=== PATIENT | male | born 1960 | race Caucasian/White ===

== ENCOUNTER 2019-12-06 05:20 | Inpatient (IN) | payer OTHER ==
[2019-12-06] VITALS (9 sets, daily range): BP systolic 124–183; BP diastolic 80–135
[~2019-12-06] VITALS: Ht 177.8 cm; Wt 64.5 kg
--- NOTE | ~2019-12-06 | EMS ---
[address] [address] EMS Patient Care Report Name: NICK CORREA Room #: PRE M.R.#: [id number] Admission: Attend Phys: Discharge: Date of : 60 Report #: [id number] THIS REPORT FOR: //name// Report Transmitted: 12/06/2019 04:49 EMS Care Summary [place], [place]/[facility] Incident [id number] @ 12/06/2019 04:53 Incident Location [address] [place] [address] Patient NICK CORREA Male, 59 Years 1960 Patient Address HOMELESS Patient History Congestive Heart Failure (CHF),Stroke/CVA,Atrial Fibrillation, Patient Allergies No known allergies, Patient Medications None Reported, Chief Complaint SOB/ CHF Disposition Transported No Lights/[place] Dispatch Reason Breathing Problem Transported To [facility] Narrative UPON ARRIVAL PT STANDING AT EDGE OF DRIVEWAY CONSCIOUS AND ALERT. PT ASSISTED INTO AMBULANCE. PT HAS BEEN HAVING TROUBLE BREATHING ALL NIGHT AND HAS BEEN UNABLE TO SLEEP. PT WAS WAITING FOR BREATHING TO IMPROVE BUT IT HASN'T. PT HAS HX CHF. LUNG SOUNDS DIMINISHED BUT CLEAR. PT ALSO HYPERTENSIVE AND A-FIB ON MONITOR. SPO2 ABLE TO MAINTAIN IN 90S ON NC. PT WEARS A MASK BUT PULLS IT DOWN [address] [address] EMS Patient Care Report Name: NICK CORREA Room #: PRE Usman#: [id number] Admission: Attend Phys: Discharge: Date of : 60 Report #: [id number] FREQUENTLY. PT GIVEN NITRO DUE TO CHF. PT TRANSPORTED [facility]. Initial Vitals @05:12P: 161,R: 30,BP: 158/81,SpO2: 95, @05:10P: 150,CO: 0,SpO2: 98, @05:05P: 142,R: 30,BP: 207/168,Pain: 0/10,GCS: 15,Glucose: 83,SpO2: 83,Revised Trauma: 11,CA Suspected: false @05:15P: 150,SpO2: 100, @05:00P: 145,GCS: 15,SpO2: 85, Assessments @05:01MENTAL:Person Oriented,Time Oriented,Place Oriented,Event Oriented,SKIN:HEENT:Head/Face: No Abnormalities,LUNG SOUNDS:General: No Abnormalities,ABDOMEN:General: No Abnormalities,PELVIS//GI:EXTREMITIES:Left Arm: No Abnormalities,Right Arm: No Abnormalities,Left Leg: No Abnormalities,Right Leg: No Abnormalities,PULSE:Radial: 2+ Normal,NEURO:No Abnormalities, Impression Respiratory disorder Procedures @05:1612-Lead ECGResponse: UnchangedSucceeded@05:01Oxygen FlowRate: 6 Device: Nasal Cannula (NC) Response: ImprovedSucceeded@05:03Saline Lock 10cc (18 ga) Site: Antecubital-LeftResponse: UnchangedSucceeded@05:033-Lead ECGResponse: UnchangedSucceeded@05:06Nitrostat - 0.4 Milligrams (mg) - SublingualResponse: Improved Timeline 04:51,Call Received 04:51,Dispatch Notified 04:53,Dispatched 04:55,En Route 04:59,On Scene 05:00,At Patient 05:00,BP: / M,PULSE: 145,RR: R,SPO2: 85 Ox,ETCO2: ,BG: ,PAIN: ,GCS: 15, 05:01,Oxygen FlowRate: 6 Device: Nasal Cannula (NC) Response: ImprovedSucceeded, 05:03,3-Lead ECG,Response: UnchangedSucceeded, 05:03,Saline Lock 10cc 18 ga Site: Antecubital-Left,Response: UnchangedSucceeded, 05:05,BP: 207/168 M,PULSE: 142,RR: 30 R,SPO2: 83 Ox,ETCO2: ,B,PAIN: 0,GCS: 15, 05:06,Nitrostat - 0.4 Milligrams (mg) - Sublingual,Response: Improved 05:08,Depart Scene 05:10,BP: / M,PULSE: 150,RR: R,SPO2: 98 Ox,ETCO2: ,BG: ,PAIN: ,GCS: , 05:12,BP: 158/81 M,PULSE: 161,RR: 30 R,SPO2: 95 Ox,ETCO2: ,BG: ,PAIN: ,GCS: , [facility] [address] [place] [address] EMS Patient Care Report Name: NICK CORREA Room #: [facility] M.R.#: [id number] Admission: Attend Phys: Discharge: Date of : 60 Report #: [id number] 05:15,BP: / M,PULSE: 150,RR: R,SPO2: 100 Ox,ETCO2: ,BG: ,PAIN: ,GCS: , 05:16,12-Lead ECG,Response: UnchangedSucceeded, 05:31,At Destination 05:37,Call Closed Disclaimer v1.1 Copyright 2020 [employer] This EMS Care Summary contains data elements from the applicable legal record (which may be displayed differently). It is designed to provide pertinent information for the following purposes: continuity of care, clinical quality, and state data reporting. The complete legal record is available to ED staff and administrators of the receiving hospital in [facility]'s Patient Tracker. All data is provided "as is."
[2019-12-06 05:40] LABS: ABSOLUTE NEUTROPHILS 6.9 thou/uL (1.4-8.2); BASOPHILS 1.1 % (0.0-2.0); EOSINOPHILS 4.5 % (0.0-3.0); HEMOGLOBIN 14.8 gm/dL (14.0-18.0); LYMPHOCYTES 21.6 % (24.0-44.0); MCH 31.1 pg (26.0-34.0); MCHC 34.4 g/dL (28.0-37.0); MCV 90.4 fL (80.0-100.0); MONOCYTES 7.8 % (1.0-8.0); PLATELET COUNT 219 thou/uL (150-400); RBC 4.75 mil/uL (4.50-6.00); RDW 13.8 % (10.5-14.5); WBC 10.6 thou/uL (4.0-11.0)
[2019-12-06 05:46] LABS: CALCIUM 7.9 mg/dL (8.5-10.1); CREATININE 1.5 mg/dL (0.7-1.3); POTASSIUM 3.8 mmol/L (3.5-5.1)
[2019-12-06 05:55] LABS: TOTAL BILIRUBIN 0.8 mg/dL (0.2-1.0); TOTAL PROTEIN 6.2 g/dL (6.4-8.2); TROPONIN-I 0.13 ng/mL (<0.06)
--- NOTE | 2019-12-06 07:26 | EKG ---
[facility] [place] [address] ELECTROCARDIOGRAM REPORT Name: NICK CORREA Room #: 170-6 ADM IN M.R.#: [id number] Admission: 12/06/19 Attend Phys: Lizandro Fulton MD Discharge: Date of : 60 Report #: [id number] THIS REPORT FOR: cc: DUKE Hernandez family physician/PCP DUKE Hernandez family physician/PCP Matthew Castañeda MD [facility] THIS REPORT FOR: //name// [facility] ED Test Date: 2019-12-06 Test Time: 05:31:33 Pat Name: NICK CORREA Department: Room: 170 Gender: M Student Activities Director: EMILY : 1960 Requested By: Lakhwinder Duque Order Number: [id number] MD: Matthew Castañeda Measurements Intervals [place] Rate: 152 P: LA: QRS: 61 QRSD: 90 T: 80 QT: 292 QTc: 465 Interpretive Statements Atrial fibrillation Anterior infarct, old No previous ECG available for comparison Electronically Signed On 12-06-2019 7:26:48 CDT by Matthew Castañeda [email or web address] <ELECTRONICALLY SIGNED> By: Matthew Castañeda MD, FACC 12/06/19725 0 0 Matthew Castañeda MD, [facility] /EPI
[2019-12-06 08:25] LABS: URINE BILIRUBIN NEGATIVE (Negative); URINE BLOOD TRACE (Negative); URINE CLARITY CLEAR; URINE COLOR YELLOW; URINE GLUCOSE-RANDOM* NEGATIVE (Negative); URINE KETONES NEGATIVE (Negative); URINE LEUKOCYTES-REFLEX NEGATIVE (Negative); URINE NITRITE-REFLEX NEGATIVE (Negative); URINE PROTEIN (DIPSTICK) 2+ (Negative); URINE SPECIFIC GRAVITY 1.025 (1.005-1.035); URINE UROBILINOGEN 0.2 E.U./dl (0.2-1.0)
[2019-12-06 08:40] LABS: FOLIC ACID 11.7 ng/mL (8.6-58.9); TSH 3.041 uIU/mL (0.358-3.740)
[2019-12-06 09:50] LABS: BACTERIA-REFLEX None Seen /HPF (None Seen); CASTS None Seen /LPF (None Seen); SQUAMOUS 0-3 Few /LPF (0-3); URINE RBC None Seen /HPF (0-2); URINE WBC-REFLEX 0-5 Rare /HPF (0-5)
[2019-12-06 09:51] LABS: CRYSTALS None Seen /LPF (None Seen)
--- NOTE | 2019-12-06 12:04 | NUR ---
ASSUMED CARE APPROX 0830. PT ADMITTED FROM ER TO 3W. PT ON 2LNC AND TACHYPNEIC. REPORTS SHORNTESS OF BREATH. ON CARDIZEM GTT @15MG/HR WHEN ARRIVED TO UNIT. TITRATED DOSE DOWN TO 5MG/HR PT'S HR WAS IN THE 70S. PT HR STABLE AT THIS TIME. IV FLUIDS D/C'D PER DR. COREA. PT EATING AND DRINKING OK. AFIB ON TELE MONITOR. PT C/O SOB W/ AMBULATION THIS AM. O2 NOW @ 3LNC. PT SLOWLY PROGRESSING TOWARDS PLAN OF CARE GOALS. WILL CONTINUE TO MONITOR.
--- NOTE | 2019-12-06 12:33 | NUR ---
COVID RESULT NEGATIVE. REPEAT COVID SWAB PER DR. MCCOY AND PAZ BALL.
--- NOTE | 2019-12-06 15:51 | NUR ---
INITIAL ASSESSMENT: Received consult. ANGÉLICA reviewed chart and spoke with nursing. Pt was admitted due to CHF. Pt placed in Enhanced Isolation to r/o COVID-19. Test is pending. Cardiology consulted. Pt is on cardizem gtt. ANGÉLICA spoke with pt via phone. Introduced role of SW. Pt appears to be alert/orientated. Pt reports he is homeless and has been living aroung this area. Pt is independent with ADLs. Pt does not have health insurance or see a doctor regularly. Pt interested in housing options. SW offered to provide pt with resources. Pt states he will not go to a homeless retirement. SW place housing info/[facility] and prescription discount card on pt's chart. Pt states he will be able to call for a ride when he is discharged. Should pt need a cab, nursing to contact the enginehouse brakeman for cab voucher. If pt needs assistance with obtaining medications over the weekend, scripts can be taken to [facility] pharmacy. Form on pt's chart if needed. ANGÉLICA is following to assist as needed with discharge planning.
[2019-12-07 03:52] VITALS: BP 145/120
[2019-12-07 05:43] LABS: BASOPHILS 0.4 % (0.0-2.0); EOSINOPHILS 0.1 % (0.0-3.0); HEMOGLOBIN 14.6 gm/dL (14.0-18.0); LYMPHOCYTES 5.3 % (24.0-44.0); MCHC 33.9 g/dL (28.0-37.0); MCV 88.4 fL (80.0-100.0); MONOCYTES 6.2 % (1.0-8.0); PLATELET COUNT 217 thou/uL (150-400); RBC 4.86 mil/uL (4.50-6.00); RDW 14.1 % (10.5-14.5); WBC 14.8 thou/uL (4.0-11.0)
[2019-12-07 05:45] LABS: CALCIUM 9.2 mg/dL (8.5-10.1); CREATININE 1.9 mg/dL (0.7-1.3); MAGNESIUM 2.1 mg/dL (1.8-2.4)
[2019-12-07 08:24] VITALS: BP 143/99
[2019-12-07 11:37] VITALS: BP 105/77
[2019-12-07 15:21] VITALS: BP 123/105
--- NOTE | 2019-12-07 16:23 | NUR ---
PATIENT NOTED TO BE QUITE ANXIOUS THIS AFTERNOON. HE STATES HE CANNOT BREATH AND "WILL LIKE TO STAY IN A TRIPOT POSITION UNTIL I COULD CATCH MY BREATH". PT HAS KNOWN HISTORY OF DRUG USE AND NURSE SUSPECTED HE MAY BE HAVING A WITHDRAWAL SYMPTOMS. NOTIFIED. SEE NEW ORDERS.
[2019-12-07 20:32] VITALS: BP 143/96
[2019-12-08 00:20] VITALS: BP 138/106
--- NOTE | 2019-12-08 07:46 | NUR ---
PROGRESS PT A/O X4 UP AD BRADLEY, DENIES PAIN. TOLERATING PO FOOD AND FLUIDS. TELE INTACT STILL READING AFIB WITH RVR WITH RATES UP TO 130'S PT DENIES CHEST PAIN OR SOA. IV ANTIBIOTICS CONTINUE
[2019-12-08 08:05] VITALS: BP 145/108
[2019-12-08 10:37] LABS: CALCIUM 8.8 mg/dL (8.5-10.1); CREATININE 1.4 mg/dL (0.7-1.3); POTASSIUM 3.9 mmol/L (3.5-5.1)
[2019-12-08 12:00] VITALS: BP 119/99
--- NOTE | 2019-12-08 17:23 | NUR ---
ASSESSMENT CHARTED. PT ALERT AND ORIENTED. DENIED HAVING PAIN OR DISCOMFORT. AFIB ON TELE. SOA NOTED WITH ACTIVITY. RT TREATMENT PROVIDED ORDERED. NEW ORDERS NOTED. NO CONCERNS AT THIS TIME.
[2019-12-08 17:30] VITALS: BP 130/109
[2019-12-08 20:21] VITALS: BP 150/109
[2019-12-08 23:34] VITALS: BP 150/109
[2019-12-09 00:20] VITALS: BP 149/108
--- NOTE | 2019-12-09 01:28 | NUR ---
assumed pt care at 1900, pt is awake, alert and orientedx4, afib on the monitor, HR sustained in the 140-150s, cardilogy called and new orders received, assessments as charted, pt is steady, denies pain or sob, pt hr noted to be sustained in 130s, cardiology called, no orders received, pt is resting in bed, denies any discomfort
[2019-12-09 04:46] VITALS: BP 140/111
[2019-12-09 05:12] LABS: HEMATOCRIT 42.1 % (42.0-52.0); MCH 29.8 pg (26.0-34.0); MCHC 33.3 g/dL (28.0-37.0); MCV 89.6 fL (80.0-100.0); RBC 4.7 mil/uL (4.50-6.00); RDW 14.1 % (10.5-14.5); WBC 14.7 thou/uL (4.0-11.0)
[2019-12-09 05:34] LABS: CALCIUM 8.7 mg/dL (8.5-10.1); CREATININE 1.6 mg/dL (0.7-1.3); POTASSIUM 3.9 mmol/L (3.5-5.1)
[2019-12-09 08:05] VITALS: BP 140/111
--- NOTE | 2019-12-09 09:30 | 2DMMODE ---
[facility] [place] [address] 2 D/M-MODE ECHOCARDIOGRAM Name: NICK CORREA Room #: 213-P ADM IN M.R.#: [id number] Admission: 12/06/19 Attend Phys: Jailyn Magana MD Discharge: Date of : 60 Report #: [id number] THIS REPORT FOR: cc: FAM - No family physician/PCP FAM - No family physician/PCP Julian Martinez MD ~ APPROVED REPORT Study performed: 12/09/2019 08:27:14 EXAM: Comprehensive 2D, Doppler, and color-flow Echocardiogram Patient Location: Echo lab Room #: 213 Status: routine BSA: 1.80 HR: 140 bpm BP: 140/111 mmHg Rhythm: Atrial Fibrillation Other Information Study Quality: Good Technically limited study due to lung interference. Indications SOB, elevated troponin, HTN urgency. Hx: Afib, CHF, HTN, COPD. 2D Dimensions RVDd: 36.16 mm IVSd: 9.69 (7-11mm) LVOT Diam: 14.87 (18-24mm) LVDd: 49.28 mm PWd: 11.12 (7-11mm) Ascending Ao: 35.77 (22-36mm) LVDs: 39.65 (25-40mm) Aortic Root: 32.32 mm Volumes Left Atrial Volume (Systole) Single Plane 4CH: 79.47 mL Single Plane 2CH: 51.77 mL LA ESV Index: 37.00 mL/m2 Aortic Valve AoV Peak Lewis.: 1.05 m/s AO Peak Gr.: 4.38 mmHg LVOT Max P.71 mmHg [facility] [address] [address] 2 D/M-MODE ECHOCARDIOGRAM Name: TASHAALEJANICK Sanjay Room #: 213-P [facility]#: [id number] Admission: 12/06/19 Attend Phys: Jailyn Magana MD Discharge: Date of : 60 Report #: [id number] LVOT Max V: 0.82 m/s MARTIN Vmax: 1.36 cm2 Mitral Valve MV Decel. Time: 92.34 ms MV E Max Lewis.: 1.58 m/s Tricuspid Valve TR Peak Lewis.: 3.03 m/s RAP Estimate: 15.00 mmHg TR Peak Gr.: 37.00 mmHg PA Pressure: 52.00 mmHg Left Ventricle The left ventricle is normal size. There is normal left ventricular wall thickness. Left ventricular systolic function is severely decreased. LVEF is 30%. This study is not technically sufficient to allow evaluation of the LV diastolic function due to atrial fibrillation. Right Ventricle The right ventricle is normal size. Right ventricle is hypokinetic. Atria Left atrium is moderately dilated. The right atrium size is normal. Aortic Valve The aortic valve is normal in structure. No aortic regurgitation is present. There is no aortic valvular stenosis. Mitral Valve Mitral valve leaflets are mildly thickened. Moderate mitral regurgitation. Tricuspid Valve The tricuspid valve is normal in structure. Mild tricuspid regurgitation. Estimated PAP is 50mmHg. Pulmonic Valve Pulmonic valve is not well visualized. Great Vessels The aortic root is normal in size. The ascending aorta is normal in size. IVC is dilated and collapses <50% with inspiration. [facility] [address] [place] [address] 2 D/M-MODE ECHOCARDIOGRAM Name: NICK CORREA Room #: 213-P [facility] IN [facility].#: [id number] Admission: 12/06/19 Attend Phys: Jailyn Magana MD Discharge: Date of : 60 Report #: [id number] Pericardium There is no pericardial effusion. <Conclusion> The left ventricle is normal size. LVEF is 30%. Left atrium is moderately dilated. The aortic valve is normal in structure. Mitral valve leaflets are mildly thickened. Moderate mitral regurgitation. The tricuspid valve is normal in structure. Mild tricuspid regurgitation. Estimated PAP is 50mmHg. Pulmonic valve is not well visualized. There is no pericardial effusion. <ELECTRONICALLY SIGNED> By: Julian Martinez MD 12/09/19928 8 Julian Martinez MD /INF
[2019-12-09 12:05] VITALS: BP 140/111
[2019-12-09 16:05] VITALS: BP 140/111
--- NOTE | 2019-12-09 17:00 | NUR ---
PT CARE ASSUMED AT 0700. ASSESSMENTS CHARTED. MEDICATION CHARTED. PT TO ECHO; EF 30%. PT TO NM LUNG PERFUSION SCAN; LOW PROBABILITY FOR PULM EMBOLISM. PT IS STEADY ON HIS FEET; UP AD BRADLEY. AFIB. LFA IV. PT IS CONTINENT OF B & B.
[2019-12-09 20:30] VITALS: BP 153/104
--- NOTE | 2019-12-10 03:07 | NUR ---
assumed pt care at 1900, pt is awake, alert and orientedx4, afib on the monitor, rates look much better, c/o pain on the genital area due to bilateral inguinal hernia, tyl offered, pt refused, miralax given as per pt request, other meds given as per may, no acute distress noted, will continue to monitor
[2019-12-10 04:45] VITALS: BP 150/94
[2019-12-10 05:23] LABS: CALCIUM 8.5 mg/dL (8.5-10.1); CREATININE 1.3 mg/dL (0.7-1.3); POTASSIUM 3.8 mmol/L (3.5-5.1)
[2019-12-10 07:30] VITALS: BP 154/75
[2019-12-10 08:00] VITALS: BP 154/75
[2019-12-10 09:00] LABS: CHOLESTEROL 210 mg/dL (<200); HDL CHOLESTEROL 55 mg/dL (>40); LDL CHOLESTEROL 109 mg/dL (<100); TC:HDL 3.8 Ratio (Not establshd); TRIGLYCERIDE 232 mg/dL (<150); VLDL 46 mg/dL (<40)
[2019-12-10 09:45] VITALS: BP 124/69
[2019-12-10] MEDS ORDERED: LISINOPRIL5 MG PO (11:08)
[2019-12-10] MEDS ORDERED: IPRAT-ALBUT 0.5-3 ML INH (11:08)
[2019-12-10] MEDS ORDERED: METOPROLOL SUCC50 MG PO (11:08)
[2019-12-10] MEDS ORDERED: ASPIRIN EC325 M1 PO (11:08)
[2019-12-10] MEDS ORDERED: DIGOXIN250 MCG PO (11:08)
[2019-12-10] MEDS ORDERED: CARDIZEM CD120 MG PO (11:08)
[2019-12-10] MEDS ORDERED: PROTONIX 20 MG20 M1 PO (11:08)
[2019-12-10] MEDS ORDERED: CEFDINIR300 MG PO (11:08)
[2019-12-10 12:00] VITALS: BP 124/69
[2019-12-10 15:11] VITALS: BP 124/69
--- NOTE | 2019-12-10 15:15 | NUR ---
PT CARE ASSUMED AT 0700. ASSESSMENTS CHARTED. MEDICATION CHARTED. PT TO BE DISCHARGED; CAB VOUCHER. PRESCRIPTIONS FILLED BY CM. TELEMETRY D/C'D. LFA IV - D/C'D. PT WILL NEED TO COME TO PHARMACY TOMORROW TO HOLE FILLER COMBIVENT.
--- NOTE | 2019-12-10 16:07 | NUR ---
Patient is homeless. Completed cab vouch for address at his request. Vouch for patients medications in amount of $516.00. Ethnology Teacher of casemgt agreeable.
== END 2019-12-10 14:49 | disposition home or self-care (01) | DRG 280 ==
LOC: ER 05:20 → EROBS 07:01 → 3W 08:39 → 2N 12-08 00:13
PROVIDERS: Emergency Medicine; Hospitalist; Nurse Practitioner; ADMIT Internal Medicine; ATTEND Internal Medicine
DX: I21.4 Non-ST elevation (NSTEMI) myocardial infarction (principal); J81.0 Acute pulmonary edema; J18.9 Pneumonia, unspecified organism; J96.01 Acute respiratory failure with hypoxia; I50.31 Acute diastolic (congestive) heart failure; N17.9 Acute kidney failure, unspecified; E44.0 Moderate protein-calorie malnutrition; J44.0 Chronic obstructive pulmonary disease with (acute) lower respiratory infection; I42.9 Cardiomyopathy, unspecified; I69.354 Hemiplegia and hemiparesis following cerebral infarction affecting left non-dominant side; Z20.828 Contact with and (suspected) exposure to other viral communicable diseases; I48.91 Unspecified atrial fibrillation; K40.90 Unilateral inguinal hernia, without obstruction or gangrene, not specified as recurrent; F19.10 Other psychoactive substance abuse, uncomplicated; I11.0 Hypertensive heart disease with heart failure; I16.0 Hypertensive urgency; Z68.20 Body mass index [BMI] 20.0-20.9, adult; Z71.6 Tobacco abuse counseling; Z59.0 Homelessness
CPT/HCPCS: 10081; 10879

== ENCOUNTER 2020-04-03 05:47 | Inpatient (IN) | payer MEDICAID ==
[~2020-04-03] VITALS: Ht 177.8 cm; Wt 63.5 kg
[~2020-04-03 05:47] MED LIST: ASPIRIN EC325 M1 PO; CARDIZEM CD120 MG PO; CEFDINIR300 MG PO; DIGOXIN250 MCG PO; IPRAT-ALBUT 0.5-3 ML INH; LISINOPRIL5 MG PO; METOPROLOL SUCC50 MG PO; PROTONIX 20 MG20 M1 PO
[2020-04-03 06:00] VITALS: BP 179/118
[2020-04-03 07:20] LABS: ABSOLUTE NEUTROPHILS 10.1 thou/uL (1.4-8.2); BASOPHILS 0.4 % (0.0-2.0); HEMATOCRIT 47.6 % (42.0-52.0); HEMOGLOBIN 15.8 gm/dL (14.0-18.0); LYMPHOCYTES 6.8 % (24.0-44.0); MCH 29.3 pg (26.0-34.0); MCHC 33.1 g/dL (28.0-37.0); MCV 88.5 fL (80.0-100.0); MONOCYTES 5.5 % (1.0-8.0); PLATELET COUNT 294 thou/uL (150-400); POLYS 86.3 % (36.0-66.0); RBC 5.38 mil/uL (4.50-6.00); RDW 13.1 % (10.5-14.5); WBC 11.7 thou/uL (4.0-11.0)
[2020-04-03 07:24] LABS: CALCIUM 9.9 mg/dL (8.5-10.1); CREATININE 1.7 mg/dL (0.7-1.3); POTASSIUM 4.1 mmol/L (3.5-5.1)
[2020-04-03 07:40] LABS: DIRECT BILIRUBIN 0.2 mg/dL (<0.1-0.2); TOTAL BILIRUBIN 1.1 mg/dL (0.2-1.0); TOTAL PROTEIN 7.3 g/dL (6.4-8.2)
--- NOTE | 2020-04-03 08:32 | NUR ---
PT states has not had meds for afib or htn since rx ran out since last visit here.
--- NOTE | 2020-04-03 08:41 | EKG ---
[place] [address] [facility] [place] [address] ELECTROCARDIOGRAM REPORT Name: NICK CORREA [facility] [id number] Admission: 04/03/20 Attend Phys: Discharge: Date of : 60 Report #: [id number] [facility] ED Test Date: 2020-04-03 Test Time: 06:45:58 Pat Name: NICK CORREA Department: Room: Gender: M Scientific Research Manager: JOSE RAFAEL : 1960 Requested By: Hubert Thompson Order Number: [id number] MD: Geovanni Peace Measurements Intervals [place] Rate: 132 P: CA: QRS: -29 QRSD: 97 T: 85 QT: 326 QTc: 483 Interpretive Statements Atrial fibrillation Paired ventricular premature complexes LVH with secondary repolarization abnormality Probable anterior infarct, old Baseline wander in lead(s) V3 Compared to ECG 12/06/2019 05:31:33 Electronically Signed On 04-03-2020 8:41:37 FIELD CARE MANAGER by Geovanni Peace [email or web address] <ELECTRONICALLY SIGNED> By: Geovanni Peace MD 04/03/20 0841 4 Geovanni Peace MD /ÁNGEL
[2020-04-03 09:40] VITALS: BP 141/110
--- NOTE | 2020-04-03 10:51 | NUR ---
59-year-old male presents with groin swelling. Patient has a longstanding history of inguinal hernia but states that it is worse this week. He noted symptoms began worsening earlier in the week and have progressed. He has constant pain large swollen inguinal hernia. Patient admitted to Dr. Delano Roach for Strangulated Left inguinal Grace repair as well as A-Fib with RVE, CHF, HTN, HLD and Hx of stroke. Patient will proceed to surgery for emergent repair of the left inguinal hernia. At present patient is listed as Homeless and unemployed without insurance. Med Assist to follow and lists his sister Sommer Garvey at [phone] is listed as his next of kin and whom to notify. NOTE: Patient was listed as homeless and was given a cab voucher and medications were also vouched for and given to the patient of $516.00 upon his last discharge on 12-10-2019. On 12-06-2019 did give patient information on housing as well as a prescription discount card. COVID PCR pending results as being received in the lab at 0718 on 04-03-20. CM will follow for discharge needs.
[2020-04-03 16:35] VITALS: BP 137/88
--- NOTE | 2020-04-03 17:56 | NUR ---
PT ARRIVED POST OP ON UNIT. CLEAR LIQUIDS PROVIDED AND VERY EXCITED FOR SUCH. ON CARDIZEM GTT AT 15MG /HR IN AFIB CONTROLLED RATE, NO ECTOPY. NS AT 125/HR INFUSING. DENIES ANY PAIN AND VOIDING PER, NO DIFFICULTIES,. HAS RIGHT HERNIA REMAING BUT WILL BE TRETAED ON LATER ON DOWN THE ROAD PER DR. ZAVALA AND APPAREENTLY IT "POPS IN AND OUT ALOT". SURGICAL INCISION IS C,D,I. NO BLEEDING, NO OOZING AT INCISIONAL AREA . HAS A RIGHT ABDOMEN NAVDEEP DRAIN WITH MINIMAL DRAINAGE OF 10 ML IN IT CURRENTLY , LIGHT RED BLOOD COLOR, NO CLOTS. LL ABD DRESSING WITH AN ABDOMEN BINDER ON WELL . 95% ON ROOM AIR. DENIES ANY PAIN POST OP AND SAID HE "FEELS SO MUCH BETTER".
[2020-04-03 20:15] VITALS: BP 147/92
[2020-04-04 00:45] VITALS: BP 132/93
[2020-04-04 03:33] LABS: HEMATOCRIT 43.4 % (42.0-52.0); HEMOGLOBIN 14.1 gm/dL (14.0-18.0); MCHC 32.6 g/dL (28.0-37.0); MCV 89.1 fL (80.0-100.0); RBC 4.87 mil/uL (4.50-6.00); RDW 13.2 % (10.5-14.5); WBC 15.8 thou/uL (4.0-11.0)
--- NOTE | 2020-04-04 03:47 | NUR ---
ASSESSMENTS CHARTED, MEDS CHARTED GIVEN. PATIENT RESTING IN BED POST SURGICAL VISIT. PATIENT INITIALLY STATED PAIN WAS NOT A PROBLEM, THEN LATER IN THE SHIFT PAIN INCREASED, MEDS GIVEN. PATIENT SLEPT WELL. ONE (8) BEAT RUN OF VTACH, REMAINS IN AFIB. ON ROOM AIR. ON CLEAR LIQUIDS, POSAAD IN PLACE. ABDOMINAL BINDER IN PLACE, ICE PACK ON AND OFF DURING SHIFT. FALL PRECAUTIONS IN PLACE DURING SHIFT.
[2020-04-04 04:02] LABS: ALBUMIN 3.4 g/dL (3.4-5.0); CALCIUM 9.2 mg/dL (8.5-10.1); CREATININE 1.6 mg/dL (0.7-1.3); MAGNESIUM 1.9 mg/dL (1.8-2.4); PHOSPHORUS 2.5 mg/dL (2.6-4.7); POTASSIUM 4.4 mmol/L (3.5-5.1)
[2020-04-04 04:45] VITALS: BP 139/86
[2020-04-04 07:00] VITALS: BP 139/86
[2020-04-04 11:22] VITALS: BP 150/80
[2020-04-04 15:20] VITALS: BP 132/77
--- NOTE | 2020-04-04 15:27 | NUR ---
ASSESSMENT CHARTED. PT ALERT AND ORIENTED. PRN PAIN MED GIVEN WITH PARTIAL RELEIF. AFIB ON TELE. SURGICAL DRESSING C/D/I. NO CONCERNS AT THIS TIME. PT PROGRESSING WELL TOWARDS DISCHARGE GOAL.
[2020-04-04 20:15] VITALS: BP 133/94
[2020-04-05 04:45] VITALS: BP 127/85
--- NOTE | 2020-04-05 05:52 | NUR ---
ASSUMED CARE OF THE PATIENT AT 1900; AOX4/UP AD BRADLEY TO BSC; AFIB/PVC AT TIMES ON THE MONITOR; FEVER MANAGED WITH PRN MEDS; ABD BINDER AND DRAIN IN PLACE POST-OP; SWETHA D/C EARLY THIS AM; PLAN IS FOR PATIENT TO REMAIN FOR OBSERVATION; WILL CONTINUE TO MONITOR
[2020-04-05 08:15] VITALS: BP 126/84
[2020-04-05 09:28] LABS: HEMATOCRIT 38.7 % (42.0-52.0); HEMOGLOBIN 12.8 gm/dL (14.0-18.0); MCH 29.4 pg (26.0-34.0); MCHC 33.2 g/dL (28.0-37.0); MCV 88.7 fL (80.0-100.0); RBC 4.37 mil/uL (4.50-6.00); RDW 13.4 % (10.5-14.5); WBC 13.2 thou/uL (4.0-11.0)
[2020-04-05 09:39] LABS: CALCIUM 8.9 mg/dL (8.5-10.1); CREATININE 1.4 mg/dL (0.7-1.3); MAGNESIUM 1.9 mg/dL (1.8-2.4); POTASSIUM 3.8 mmol/L (3.5-5.1)
[2020-04-05 12:11] VITALS: BP 124/83
[2020-04-05 15:37] VITALS: BP 123/83
--- NOTE | 2020-04-05 16:41 | NUR ---
ASSESSMENT CHARTED. PT ALERT AND ORIENTED. VSS. AFIB ON TELE. PRN PAIN MED GIVEN WITH PARTIAL RELIEF. PT REPORT FEELING CONSTIPATED. DR. WILSON NOTIFIED. NEW ORDERS RECEIVED. ABD SURGICAL DRESSING C/DI WITH ABD BINDER. NAVDEEP DRAIN INTACT. NO CONCERNS AT THIS TIME. PT PROGRSSING WELL TOWARDS DISCHARGE GOAL.
[2020-04-05 19:29] VITALS: BP 138/81
[2020-04-06 03:36] LABS: CALCIUM 8.7 mg/dL (8.5-10.1); CREATININE 1.4 mg/dL (0.7-1.3); HEMATOCRIT 37.3 % (42.0-52.0); HEMOGLOBIN 12.4 gm/dL (14.0-18.0); MCH 29.4 pg (26.0-34.0); MCHC 33.2 g/dL (28.0-37.0); MCV 88.5 fL (80.0-100.0); POTASSIUM 4.2 mmol/L (3.5-5.1); RBC 4.21 mil/uL (4.50-6.00); RDW 13.1 % (10.5-14.5); WBC 11.8 thou/uL (4.0-11.0)
[2020-04-06 05:00] VITALS: BP 116/78
--- NOTE | 2020-04-06 06:40 | NUR ---
ASSESSMENT CHARTED, NAVDEEP HOUGH WITH 20CC TODAY, PRN PAIN MEDS GIVEN FOR INCISIONAL PAIN, WILL CON'T TO MONITOR PER PPOC.
[2020-04-06 09:36] VITALS: BP 127/87
[2020-04-06 12:38] VITALS: BP 138/94
--- NOTE | 2020-04-06 13:14 | NUR ---
RD consult received for pt homeless, food insecurity. S/P open hernia repair surgery and segmental bowel resection. Diet advancing, tolerating well, ate 100% hamburger for lunch. Wt down about 2 lb from 11/2019. Pt reports lives in trailer, and has to walk to [facility] to get food sources. Spoke with DM and plan is for [facility] [place] after discharge. Will add ensure [employer] bid for added nutrition source, otherwise low nutrition risk with interventions in place.
--- NOTE | 2020-04-06 14:42 | NUR ---
Met with patient. He admits with hernia repair. Patient lives in a camper on friends property. He has heat but no running water. He can use their bathroom when they are awake. he has concerns that at mo he has much stuff in camper and cannot move "stuff" around. He has approx 3-4 foot area were he needs to climb and pull himself up to sleeping loft. He is concerned with rescrictions from hernia repair. he does not want to go to Homeless long-term as concerns for COVID. Discussed they take precautions but he does not feel comfortable to dc to long-term. Patient has new phone its an iphone and he cannot see well the numbers. He has no transportation, not near bus station. Called medassist and left message. Patient reports they are assisting with Food stamps application and possibly disability. Patient can use families address. 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 They will give him food. Casemgt following.
[2020-04-06] MEDS ORDERED: METOPROLOL SUCC50 MG PO (14:59)
[2020-04-06] MEDS ORDERED: DILTIAZEM 24HR180 M1 PO (15:00)
[2020-04-06] MEDS ORDERED: HYDROCODON-ACE1 EAC7 PO (15:00)
[2020-04-06] MEDS ORDERED: MIRALAX17 GM PO (15:01)
[2020-04-06 16:52] VITALS: BP 148/84
[2020-04-06 20:31] VITALS: BP 124/104
[2020-04-07 05:00] VITALS: BP 158/95
--- NOTE | 2020-04-07 06:57 | NUR ---
ASSUME CARE 1900. PT/VITALS STABLE. INTERMITTENT INCISIONAL PAIN. AFIB WITH CONTROLLED HR NOTED ON MONITOR. ASSESSMENT CHARTED. PROGRESSING WELL WITH POC. PLAN IS POSSIBLE DISCHARGE TODAY. NADVEEP DRAIN INTACT WITH SMALL AMOUNT OF SEROUSSANG DRAINAGE NOTED. ADEQUATE REST/NO DISTRESS. WILL CONTINUE TO MONITOR AND FOLLOW WITH POC
[2020-04-07 08:51] VITALS: BP 148/95
[2020-04-07 11:24] VITALS: BP 148/95
[2020-04-07 11:51] VITALS: BP 149/100
--- NOTE | 2020-04-07 15:43 | NUR ---
AAOX4. DISCHARGING. CAB VOUCHER AND MEDICATIONS OBTAINED BY VIKAS NWE. TELE BOX SECURED.
--- NOTE | 2020-04-07 17:51 | NUR ---
Patient to ne home to his camper. discussed with therapy him getting to his bunk. Discussed with patient to obtain a stool from families property that he can step up closer. Patient give smart phone from brother. Assisted with calling for food stamps. vouched for medications in amount of $39. Inquired with administration if can vouch for pain meds and was accepted. Cab voucher to home. no further needs. Patient has safety net clinic information.
--- NOTE | 2020-04-08 12:00 | PATH ---
[facility] [address] [place] [address] PATHOLOGY RPT PROCEDURE Name: NICK CORREA Room #: 200-I DIS IN M.R.#: [id number] Admission: 04/03/20 Date of : 60 Discharge: 04/07/20 Report #: [id number] Path Case #: [id number] [facility] Accession Number: [id number] . 01 Material submitted: . PART A: small bowel - SMALL BOWEL PART B: inguinal area - LEFT INGUINAL HERNIA SAC. Modifiers: left . 01 Clinical history: . HERNIA REPAIR INGUINAL UNILATERAL SMALL BOWEL RESECTION LEFT STRANGULATED INGUINAL HERNIA . 02 Diagnosis: A. Small bowel, resection: - Multiple hemorrhagic adhesions along with marked serositis, history of strangulated hernia provided. - Partial ischemic changes identified within the bowel wall. - Margins and additionally received fragments showing partially viable mucosa. - Negative for malignancy. . B. Hernia sac left inguinal, repair: - Dense fibrovascular connective tissue associated with marked acute inflammation as well as reparative changes. (IUV:rené; 04/07/2020) QMS 04/07/2020 1639 Local . 02 Electronically signed: . Dianne Neri MD, Pathologist NPI- [id number] . 01 Gross description: . A. The specimen is received in formalin, labeled "Nick Correa, small bowel" and consists of an unoriented segment of bowel measuring approximately 55 cm in length and up to 2.7 cm in diameter both margins are closed with a staple line. The mesenteric fat measures up to 8.0 cm, which is markedly hemorrhagic. The bowel serosa is pink-alas smooth shiny with focal hemorrhagic adhesions. Opening reveals a pink-alas to green mucosa with no masses. Also received in the bottom the container is a segment of pink-alas tissue with a linear line of chris. Haul Cane Brakeman sections are submitted as follows: . A1-A2: Margins A3-A5: Small bowel with adhesions/hemorrhagic mesenteric fat A6: Additionally received tissue . [address] [address] PATHOLOGY RPT PROCEDURE Name: NICK CORREA Room #: 200-I [facility] ..#: [id number] Admission: 04/03/20 Date of : 60 Discharge: 04/07/20 Report #: [id number] Path Case #: [id number] B. The specimen is received in formalin, labeled "Nick Correa, hernia sac left inguinal" and consists of a congested rubbery segment of purple-dark berry tissue measuring 10.4 x 6.1 x 3.0 cm. No mass lesions are identified and product support sales representative sections are submitted in B1. (SDY; 04/06/2020) SYU/SYU 04/06/2020 1458 Local . 02 Pathologist provided ICD-10: K65.8, K40.90 . 02 CPT . 947198, 160719 Specimen Comment: A courtesy copy of this report has been sent to [phone] Specimen Comment: Report sent to Specimen Comment: A duplicate report has been generated due to demographic updates. Performed at: [address] [facility], [place], [place] [id number] MD Frederick Gary MD Phone: [phone] Performed at: [address] [facility] [id number] MD Dianne Neri MD Phone: [phone]
--- NOTE | 2020-04-09 10:35 | H ---
[facility] [place] [address] HISTORY AND PHYSICAL Name: NICK CORREA Room #: 200-I [facility] IN M.R.#: [id number] Admission: 04/03/20 Attend Phys: Conrado Raoch MD Discharge: 04/07/20 Date of : 60 Report #: [id number] THIS REPORT FOR: cc: FAM - No family physician/PCP FAM - No family physician/PCP Conrado Roach MD ~ DATE OF SERVICE: 04/03/2020 CHIEF COMPLAINT: Left groin pain and swelling. HISTORY OF PRESENT ILLNESS: The patient is a very pleasant 59-year-old gentleman who presents with 1-week history of worsening left groin pain and swelling. He has had a hernia on this side his entire life he reports, but in the last week, it has become painful. Normally, the hernia will be easy to push back again; however, he can no longer do that. He is unable to pass gas and has not had a bowel movement in quite some time. His pain is a 9/10 with movement and improves with rest. PAST MEDICAL HISTORY: 1. Hypertension. 2. Congestive heart failure. 3. Atrial fibrillation. 4. Rheumatic fever as a child. 5. History of cerebrovascular accident with left-sided upper extremity tingling. 6. Hyperlipidemia. 7. Tobaccoism. PAST SURGICAL HISTORY: Denies. SOCIAL HISTORY: Previous alcohol use. Denies tobacco or recreational drug use. FAMILY HISTORY: Denies coagulopathy or malignancy. REVIEW OF SYSTEMS: CONSTITUTIONAL: No fever. No chills. HEENT: Denies blurring of vision, double vision, headaches, hearing loss, sinus drainage or sore throat. Denies blurring of vision, double vision, headaches, hearing loss, sinus drainage or sore throat. CARDIOVASCULAR: Denies chest pain, palpitations, orthopnea or paroxysmal nocturnal dyspnea. RESPIRATORY: Denies cough, wheezing, hemoptysis, or shortness of air. GASTROINTESTINAL: See above and below. GENITOURINARY: Denies dysuria or hematuria or kidney stones. No urinary frequency, urgency or incontinence. Denies dysuria or hematuria or kidney [address] [address] HISTORY AND PHYSICAL Name: NICK CORREA Room #: 200-I [facility] IN [facility].#: [id number] Admission: 04/03/20 Attend Phys: Conrado Roach MD Discharge: 04/07/20 Date of : 60 Report #: [id number] stones. No urinary frequency, urgency or incontinence. MUSCULOSKELETAL: No joint pain. No muscle pain. NEUROLOGICAL: Denies tremor, stroke or seizure. Denies tremor, stroke or seizure. HEMATOLOGIC / LYMPHATICS: Denies easy bruising, easy bleeding or enlarged lymph nodes. SKIN: No rash or ulceration. ENDOCRINE: No heat or cold intolerance PSYCHIATRIC: Denies depression, anxiety, or schizophrenia. PHYSICAL EXAMINATION: VITAL SIGNS: Temperature 36.6, pulse 122, respiratory rate 23, blood pressure 179/126, pulse ox 98%. GENERAL: No apparent distress, alert and oriented x3. HEENT: PERRLA, EOMI, MMM, NCAT NECK: Supple. No LAD CARDIOVASCULAR: Regular rhythm and rate. Hemodynamically stable. Normal capillary refill. Regular rhythm and rate. Hemodynamically stable. Normal capillary refill. PULMONARY: Nonlabored. Clear to auscultation bilaterally ABDOMEN: Soft, abdomen is nontender, no guarding, rebound or rigidity. He has a large swelling in his left groin that is tight. His scrotum is erythematous. He will not allow reduction of the hernia. EXTREMITIES: Calves soft, nontender, no edema. SKIN: No rashes or bruises. PSYCHIATRIC: Normal mood and affect Normal mood and affect NEUROLOGICAL: Grossly intact. CN II-XII grossly intact. MUSCULOSKELETAL: 5/5 strength in upper extremities and lower extremities bilaterally LYMPHATICS: No cervical, inguinal, or supraclavicular lymphadenopathy. LABORATORY DATA: White blood count 11.7, hemoglobin 15.8, hematocrit 47.6, platelets 294. Sodium 142, creatinine 1.7, total bilirubin 1.1. IMAGING: CT of the abdomen and pelvis. IMPRESSION: 1. Large left-sided inguinal hernia. A loop of abnormally thickened appearing small bowel extends into the left hemiscrotum. There is a left sided hydrocele: 2. Small right inguinal hernia and small right hydrocele. 3. Mild aortoiliac atherosclerosis. ASSESSMENT AND PLAN: The patient is a very pleasant 59-year-old male with a strangulated left inguinal hernia in AFib with RVR. [address] [address] HISTORY AND PHYSICAL Name: SIMONJANICK Room #: 200-I [facility] IN ..#: [id number] Admission: 04/03/20 Attend Phys: Conrado Roach MD Discharge: 04/07/20 Date of : 60 Report #: [id number] DIAGNOSES: 1. Strangulated left inguinal hernia. 2. Atrial fibrillation with rapid ventricular rate. 3. Congestive heart failure. 4. Hypertension. 5. Hyperlipidemia. 6. History of stroke. RECOMMENDATIONS: 1. Admit to surgery. 6. Consult medicine. 2. IV fluid resuscitation. 3. We will proceed to the operating room emergently for repair of left inguinal hernia. 4. The risks, benefits, alternatives of the procedure were discussed with the patient. The risks discussed included but were not limited to the risk of bleeding, infection. He understood this would be an open procedure, damage to nearby anatomy, hernia recurrence, use of mesh, bowel resection that would negate their use if mesh, risk of bowel resection being an anastomotic leak and anesthesia (cardiac, pulmonary, neurologic type complications, which he is at high risk for), and even . The patient had the opportunity to ask questions. All questions were answered to the best of my ability. At the end of discussion, he wished to proceed. <ELECTRONICALLY SIGNED> By: Conrado Roach MD 04/09/20 1035 0907 [id number] Conrado Roach MD /nt
== END 2020-04-07 15:49 | disposition home or self-care (01) | DRG 330 ==
LOC: ER 05:47 → EROBS 08:56 → 2N 08:56 → TBACV 10:47 → 2N 16:24
PROVIDERS: Emergency Medicine; Internal Medicine; ADMIT Surgery; ATTEND Surgery
PROC: 0DB80ZZ Excision of Small Intestine, Open Approach (ICD-10-PCS; principal; 2020-04-03)
PROC: 0YQ60ZZ Repair Left Inguinal Region, Open Approach (ICD-10-PCS; principal; 2020-04-03)
DX: K40.00 Bilateral inguinal hernia, with obstruction, without gangrene, not specified as recurrent (principal); S36.892A Contusion of other intra-abdominal organs, initial encounter; N17.9 Acute kidney failure, unspecified; I50.22 Chronic systolic (congestive) heart failure; I42.8 Other cardiomyopathies; I13.0 Hypertensive heart and chronic kidney disease with heart failure and stage 1 through stage 4 chronic kidney disease, or unspecified chronic kidney disease; I48.91 Unspecified atrial fibrillation; E78.5 Hyperlipidemia, unspecified; F17.200 Nicotine dependence, unspecified, uncomplicated; N43.3 Hydrocele, unspecified; I70.209 Unspecified atherosclerosis of native arteries of extremities, unspecified extremity; Z20.822 Contact with and (suspected) exposure to COVID-19; X58.XXXA Exposure to other specified factors, initial encounter; I16.0 Hypertensive urgency; N18.9 Chronic kidney disease, unspecified; Y93.89 Activity, other specified; Z79.899 Other long term (current) drug therapy; Y92.89 Other specified places as the place of occurrence of the external cause; Y99.8 Other external cause status
CPT/HCPCS: 10081; 50093; 50101; 50411; 50445; 50455; 50555; 51708; 51712; 54118; 56524; 56525; 56526; 62110; 62900; 70005

== ENCOUNTER 2020-10-01 12:58 | Inpatient (IN) | payer OTHER ==
[~2020-10-01] VITALS: Ht 177.8 cm; Wt 59.0 kg
[~2020-10-01 12:58] MED LIST changes: +DILTIAZEM 24HR180 M1 PO; +HYDROCODON-ACE1 EAC7 PO; +MIRALAX17 GM PO
[2020-10-01 13:13] VITALS: BP 143/114
[2020-10-01] MEDS ORDERED: NOHOMEMEDICATIONS (13:28)
[2020-10-01 13:41] LABS: ABSOLUTE NEUTROPHILS 5.4 thou/uL (1.4-8.2); BASOPHILS 0.6 % (0.0-2.0); EOSINOPHILS 3.3 % (0.0-3.0); HEMATOCRIT 45.1 % (42.0-52.0); HEMOGLOBIN 15.1 gm/dL (14.0-18.0); MCH 29.9 pg (26.0-34.0); MCHC 33.5 g/dL (28.0-37.0); MCV 89.2 fL (80.0-100.0); MONOCYTES 6.4 % (1.0-8.0); PLATELET COUNT 203 thou/uL (150-400); POLYS 72.7 % (36.0-66.0); RBC 5.06 mil/uL (4.50-6.00); RDW 15.8 % (10.5-14.5); WBC 7.4 thou/uL (4.0-11.0)
[2020-10-01 13:53] LABS: ANION GAP 10 mmol/L (7-16); BUN 40 mg/dL (7-18); CALCIUM 8.7 mg/dL (8.5-10.1); CHLORIDE 107 mmol/L (98-107); CO2 25 mmol/L (21-32); CREATININE 2.7 mg/dL (0.7-1.3); GLUCOSE 195 mg/dL (74-106); POTASSIUM 3.8 mmol/L (3.5-5.1); SODIUM 142 mmol/L (136-145)
[2020-10-01 14:01] LABS: TROPONIN-I <0.06 ng/mL (<0.06)
--- NOTE | 2020-10-01 15:26 | EKG ---
[address] [address] ELECTROCARDIOGRAM REPORT Name: NICK CORREA Room #: 170-1 ADM IN M.R.#: [id number] Admission: 10/01/20 Attend Phys: Neto Tan MD Discharge: Date of : 60 Report #: [id number] [facility] ED Test Date: 2020-10-01 Test Time: 13:25:16 Pat Name: NICK CORREA Department: Room: 170 Gender: M Production Supv: eliot : 1960 Requested By: Romero Hassan Order Number: [id number] MD: Matthew Castañeda Measurements Intervals [place] Rate: 117 P: OR: QRS: -57 QRSD: 95 T: 124 QT: 355 QTc: 496 Interpretive Statements Atrial fibrillation Left anterior fascicular block LVH with secondary repolarization abnormality Probable anterior infarct, age indeterminate Compared to ECG 04/03/2020 06:45:58 Left anterior fascicular block now present Ventricular premature complex(es) no longer present Myocardial infarct finding still present Electronically Signed On 10-01-2020 15:26:09 CDT by Matthew Castañeda [email or web address] <ELECTRONICALLY SIGNED> By: Matthew Castañeda MD, [facility] 10/01/20 1526 1325 1325 Matthew Castañeda MD, [facility] /EPI
[2020-10-01 15:30] VITALS: BP 136/102
[2020-10-01 16:01] VITALS: BP 142/86
[2020-10-01 16:45] VITALS: BP 143/106
[2020-10-01 19:16] VITALS: BP 127/79
[2020-10-02] VITALS (7 sets, daily range): BP systolic 105–120; BP diastolic 69–95
[2020-10-02 09:14] LABS: HEMATOCRIT 46.4 % (42.0-52.0); HEMOGLOBIN 15.9 gm/dL (14.0-18.0); MCH 30.9 pg (26.0-34.0); MCHC 34.2 g/dL (28.0-37.0); MCV 90.3 fL (80.0-100.0); RBC 5.14 mil/uL (4.50-6.00); RDW 16.2 % (10.5-14.5); WBC 8.8 thou/uL (4.0-11.0)
[2020-10-02 09:36] LABS: CREATININE 2.6 mg/dL (0.7-1.3); MAGNESIUM 1.8 mg/dL (1.8-2.4); POTASSIUM 4.3 mmol/L (3.5-5.1)
--- NOTE | 2020-10-02 11:55 | 2DMMODE ---
[facility] [place] [address] 2 D/M-MODE ECHOCARDIOGRAM Name: NICK CORREA Room #: 204-P ADM IN M.R.#: [id number] Admission: 10/01/20 Attend Phys: Neto Tan MD Discharge: Date of : 60 Report #: [id number] THIS REPORT FOR: cc: [facility] - No family physician/PCP [facility] - No family physician/PCP Matthew Castañeda MD [facility] ~ APPROVED REPORT Study performed: 10/02/2020 10:09:16 EXAM: Comprehensive 2D, Doppler, and color-flow Echocardiogram Patient Location: Bedside Room #: 204 Status: routine BSA: 1.74 HR: 87 bpm BP: 118/93 mmHg Other Information Study Quality: Adequate Technically limited study due to patient sitting up. Indications Cardiomyopathy Hypertension/HDD Hx CVA, HLD 2D Dimensions RVDd: 35.32 mm IVSd: 9.75 (7-11mm) LVOT Diam: 19.79 (18-24mm) LVDd: 56.59 mm PWd: 11.27 (7-11mm) Ascending Ao: 33.60 (22-36mm) LVDs: 46.10 (25-40mm) Aortic Root: 31.15 mm IVC: 28.00 mm Volumes Left Atrial Volume (Systole) Single Plane 4CH: 91.65 mL Single Plane 2CH: 98.84 mL LA ESV Index: 61.00 mL/m2 Aortic Valve AoV Peak Lewis.: 0.97 m/s AO Peak Gr.: 3.78 mmHg LVOT Max P.80 mmHg [facility] [address] [place] [address] 2 D/M-MODE ECHOCARDIOGRAM Name: NICK CORREA Room #: 204-P [facility]#: [id number] Admission: 10/01/20 Attend Phys: Neto Tan, Discharge: Date of : 60 Report #: [id number] LVOT Max V: 0.67 m/s MARTIN Vmax: 2.12 cm2 Mitral Valve MV Decel. Time: 128.33 ms MV E Max Lewis.: 1.63 m/s Pulmonary Valve PV Peak Lewis.: 0.67 m/s PV Peak Gr.: 1.79 mmHg Tricuspid Valve TR Peak Lewis.: 3.22 m/s RAP Estimate: 10.00 mmHg TR Peak Gr.: 41.36 mmHg PA Pressure: 51.00 mmHg Left Ventricle Left ventricle is mildly dilated. There is normal left ventricular wall thickness. Left ventricular ejection fraction is severely decreased. LVEF is 20%. This study is not technically sufficient to allow evaluation of the LV diastolic function due to atrial fibrillation. Right Ventricle Right ventricle is mildly dilated. Right ventricle is hypokinetic. Atria Left atrium is severely dilated. Right atrium is severely dilated. Aortic Valve The Aortic valve is sclerotic. Trace aortic regurgitation. There is no aortic valvular stenosis. Mitral Valve Mild mitral annular calcification. Moderate to severe mitral regurgitation No evidence of mitral valve stenosis. Tricuspid Valve The tricuspid valve is normal in structure. Mild tricuspid regurgitation. PAP is estimated at 51 mmHg. Pulmonic Valve Pulmonic valve is not well visualized. Great Vessels [facility] [address] [place] [address] 2 D/M-MODE ECHOCARDIOGRAM Name: NICK CORREA Room #: 204-P [facility] IN ..#: [id number] Admission: 10/01/20 Attend Phys: Neto Tan, Discharge: Date of : 60 Report #: [id number] The aortic root is normal in size. IVC is dilated and collapses >50% with inspiration. Pericardium There is no pericardial effusion. <Conclusion> Left ventricle mildly dilated with normal wall thickness Severe global hypokinesis ejection fraction 20% Right ventricle mildly dilated/hypokinetic Severe biatrial enlargement Color-flow upper study was performed of the aortic/mitral/tricuspid/pulmonary valve Moderate-severe posteriorly directed mitral valve insufficiency Mild mitral annular calcification Mild tricuspid valve insufficiency Pulmonary systolic pressure estimated at 51 mmHg No pericardial effusion Normal aortic root size <ELECTRONICALLY SIGNED> By: Matthew Castañeda MD, FACC 10/02/20 1155 1155 1155 Matthew Castañeda MD, FACC /INF
[2020-10-02] MEDS ORDERED: METOPROLOL SUCC50 MG PO (13:19)
[2020-10-02] MEDS ORDERED: CARDIZEM CD 18180 M3 PO (13:19)
[2020-10-02] MEDS ORDERED: ASPIRIN EC325 M1 PO (13:19)
--- NOTE | 2020-10-02 15:59 | NUR ---
Case opened to follow for nc planning. Pt lives in a camper on his friend's property. He is known to and has been provided [email or web address] clinic info. He notes he has not followed up. [facility] serv[facility] discussed as they may be able to help with transport. He is agreeable. 2mos of medication vouchered per the [facility] for a total of $59 (3 scripts). He is up ad blessing in the room. He will need a cab ride vouchered at nc. Possible wkend nc. Scripts filled and meds given the unit rn to lock in the med room to be given to the pt at nc. No other needs noted. [facility] to f/u with him [place]. He does have his mobile phone that his brother provides.
--- NOTE | 2020-10-02 19:18 | NUR ---
SPOKE WITH DR WILSON IN REGARD TO SCHEDULED TREATMENTS. HE IS AGREEABLE TO MAKING THEM PRN- CONTACTING THE NIGHT WAX PATTERN ASSEMBLER FOR THE CHANGES.
[2020-10-02 23:06] LABS: GLYCOHEMOGLOBIN (HGB A1C) 5.5 % (4.8-5.6)
[2020-10-03] VITALS (9 sets, daily range): BP systolic 111–140; BP diastolic 37–102
[2020-10-03 04:34] LABS: HEMATOCRIT 43.2 % (42.0-52.0); HEMOGLOBIN 14.5 gm/dL (14.0-18.0); MCH 30.4 pg (26.0-34.0); MCHC 33.7 g/dL (28.0-37.0); MCV 90.2 fL (80.0-100.0); RBC 4.79 mil/uL (4.50-6.00); RDW 16.1 % (10.5-14.5); WBC 9.6 thou/uL (4.0-11.0)
[2020-10-03 04:43] LABS: ALBUMIN 3.2 g/dL (3.4-5.0); CALCIUM 8.6 mg/dL (8.5-10.1); CREATININE 2.7 mg/dL (0.7-1.3); MAGNESIUM 1.9 mg/dL (1.8-2.4); PHOSPHORUS 3.3 mg/dL (2.5-4.9); POTASSIUM 3.5 mmol/L (3.5-5.1)
--- NOTE | 2020-10-03 16:56 | NUR ---
PT CARE ASSUMED AT 0700. ASSESSMENTS CHARTED. MEDICATIONS CHARTED. RAC IV. ATRIAL FIBRILLATION. UP AD BRADLEY. DIET: HEART HEALTHY, ACHS. FLUID RESTRICTION; 1999. EF 20% PT HAS ANXIETY AT TIMES. HX: CVA.
--- NOTE | 2020-10-03 16:59 | NUR ---
PT CARE ASSUMED AT 0700. ASSESSMENTS CHARTED. MEDICATIONS CHARTED. RFA IV. SINUS RHYTHM. STAND-BY ASSIST. DIALYSIS: T[place]NY [place] SAT. HYDRALYZINE Q6PRN SBP>165. SEIZURE PRECAUTIONS. JOEL AV FISTULA. DIET: RENAL.
[2020-10-03 20:25] LABS: BE(vivo) -6.5 mmol/L (-2 to +3); HCO3 15.9 mmol/L (22.0-26.0); PCO2 25.5 mmHg (35.0-45.0); PO2 146.3 mmHg (80.0-100.0); pH 7.412 (7.360-7.450); sO2 98.9 % (92.0-98.0)
--- NOTE | 2020-10-03 22:03 | NUR ---
UPON INITIAL ASSESSMENT PATIENT HYPOXIC AND BRADYCARDIAC WITH PULSES IN LOW 30'S. NURSE INITIATED OXYGEN AND CALLED PROVIDER FOR STAT ABG, CHEST XRAY AND MEDICATION. MAID CLEANING COOKING ROUNDED ON PATIENT AFTER TREATMENT AND IS AGREEMENT WITH NURSE THAT PATIENT IS CURRENTLY STABLE. NURSE GIVEN INSTRUCTIONS TO CLOSELY MONITOR PATIENT AND DISCONTINUE RATE CONTROL MEDICATION.
--- NOTE | 2020-10-04 03:05 | NUR ---
PATIENT RESTLESS THROUGHOUT SHIFT AND FREQUENTLY REMOVES OXYGEN. MOTTLED LOWER EXTREMITIES WITH COOL HANDS AND FEET. OXYGEN SATURATIONS IN 90'S WHEN CHECKED. PATIENT HAS PERIODS OF LABORED BREATHING. HE IS ALSO HIGHLY ANXIOUS. NURSE HAS SPOKEN TO PROVIDER MULTIPLE TIMES REGARDING PATIENTS CONDITION. HEART RATE HAS INCREASED TOP ACCEPTABLE RATE. NURSE TO CONTINUE TO MONITOR.
[2020-10-04 03:20] VITALS: BP 148/98
[2020-10-04 04:12] LABS: ALBUMIN 3.5 g/dL (3.4-5.0); CALCIUM 9.1 mg/dL (8.5-10.1); PHOSPHORUS 3.8 mg/dL (2.5-4.9)
[2020-10-04 07:35] VITALS: BP 137/121
[2020-10-04 11:29] VITALS: BP 126/98
[2020-10-04 16:23] VITALS: BP 114/80
--- NOTE | 2020-10-04 16:46 | NUR ---
PT LETHARGIC THIS MORNING, BUT EASILY AROUSABLE. ALERT AND ORIENTED TIMES FOUR. VSS. PT DENIES PAIN/SOA. PT TOLERATES MEDS REFUSED BREAKFAST, BUT DID EAT LUNCH AND SOME DINNER. PT UP WITH ASSIST OF ONE. WILL CONTINUE TO MONITOR.
[2020-10-04 19:28] VITALS: BP 116/85
[2020-10-05 04:50] VITALS: BP 100/72
[2020-10-05 07:30] VITALS: BP 144/84; BP 158/96
--- NOTE | 2020-10-05 07:34 | NUR ---
asummed care of this patient from the night nurse.
[2020-10-05 11:45] VITALS: BP 133/97
[2020-10-05 12:16] LABS: CALCIUM 8.7 mg/dL (8.5-10.1); CREATININE 2.6 mg/dL (0.7-1.3); MAGNESIUM 1.8 mg/dL (1.8-2.4); POTASSIUM 3.9 mmol/L (3.5-5.1)
[2020-10-05 12:24] LABS: HEMATOCRIT 43.2 % (42.0-52.0); HEMOGLOBIN 14.4 gm/dL (14.0-18.0); MCH 30.3 pg (26.0-34.0); MCHC 33.3 g/dL (28.0-37.0); RBC 4.75 mil/uL (4.50-6.00); WBC 19.2 thou/uL (4.0-11.0)
--- NOTE | 2020-10-05 15:43 | NUR ---
ON-GOING ASSESSMENT: CM REVIEWED CHART AND SPOKE WITH ATTENDING. PT IS STILL NEEDING HOSPITALIZATION FOR STABLIZATION OF PROPOSAL DEVELOPMENT MANAGER AND HEARTRATE. PTS MEDICATIONS WERE FILLED AND VOUCHERED OVER THE WEEKEND BY CM AND LOCKED IN THE MED ROOM. CM WILL HAVE TO REVIEW MEDICATIONS VOUCHERED AT TIME OF DISCHARGE THOSE MAY NOW CHANGE. PT WILL ALSO LIKELY NEED TRANSPORTATION HOME AT THE TIME OF DISCHARGE.
[2020-10-05 15:45] VITALS: BP 116/83
[2020-10-05 16:10] VITALS: BP 116/83
[2020-10-05 18:19] LABS: URINE BILIRUBIN NEGATIVE (Negative); URINE BLOOD NEGATIVE (Negative); URINE CLARITY CLEAR; URINE COLOR YELLOW; URINE GLUCOSE-RANDOM* NEGATIVE (Negative); URINE KETONES NEGATIVE (Negative); URINE LEUKOCYTES-REFLEX NEGATIVE (Negative); URINE NITRITE-REFLEX NEGATIVE (Negative); URINE PROTEIN (DIPSTICK) TRACE (Negative); URINE SPECIFIC GRAVITY 1.015 (1.005-1.035)
--- NOTE | 2020-10-05 18:27 | NUR ---
PATIENT IS SLOWLY PROGRESSING BUT CONTINUES TO C/O DYSPNEA WITH ACTIVITY AND ANXIETY. DR WILSON NOTIFIED OF PATIENT C/O NASAL CONGESTION AND DIFFICULTY BREATHING, O2 SAT 99% AND BREATHE SOUNDS AUDIABEL IN ALL LOBES. PORTABLE CXR REVIEWED AND URINE CULTURE SENT FOR ELEVATED WBC. XANAX GIVEN FOR ANXIETY. PLEASE REFER TO ASSESSMENTS. WILL CONTINUE TO MONITOR.
[2020-10-05 19:10] VITALS: BP 108/88
[2020-10-06 02:58] LABS: HEMATOCRIT 40.3 % (42.0-52.0); HEMOGLOBIN 13.7 gm/dL (14.0-18.0); MCH 30.4 pg (26.0-34.0); MCHC 33.9 g/dL (28.0-37.0); MCV 89.6 fL (80.0-100.0); RBC 4.5 mil/uL (4.50-6.00); RDW 15.7 % (10.5-14.5); WBC 10.3 thou/uL (4.0-11.0)
[2020-10-06 03:06] VITALS: BP 119/98
[2020-10-06 03:42] LABS: CALCIUM 8.6 mg/dL (8.5-10.1); CREATININE 2.2 mg/dL (0.7-1.3); MAGNESIUM 1.9 mg/dL (1.8-2.4); POTASSIUM 3.5 mmol/L (3.5-5.1)
[2020-10-06 07:39] VITALS: BP 143/113
[2020-10-06 11:29] VITALS: BP 116/99
[2020-10-06 13:11] VITALS: BP 106/86
[2020-10-06] MEDS ORDERED: PROAIR HFA8.5 GM INH (14:49)
[2020-10-06 15:18] VITALS: BP 106/86
--- NOTE | 2020-10-06 15:26 | NUR ---
on-going assessment: CM REVIEWED CHART AND SPOKE WITH ATTENDING WHO REPORTS PATIENT IS STABLE FOR DISCHARGE TODAY. PT PLANS ON RETURNING TO [facility] [address]. PTS MEDICATIONS WERE PREVIOUSLY FILLED IN ANTICIPATING FOR DISCHARGE AND LOCKED IN THE MED ROOM. CM FOLLOWED UP WITH BEDSIDE RN TO LOCATE MEDICATIONS AND VERIFY THEY ARE THE SAME D/C MEDICATIONS. ATTENDING REPORTS NOTHING HAS CHANGED AND BEDSIDE RN STATED THEY CONFIRMED VOUCHERED MEDS WERE THE SAME. PT IS NEEDING TRANSPORTATION HOME TO [address] [facility] [id number]. CM PROVIDED BEDSIDE RN WITH THE CAB VOUCHER [id number]. CM ALSO PROVIDED PATIENT WITH THE CONTACT NUMBER FOR [facility] TO FOLLOW UP ON HIS MEDICAID AND DISABILITY. CM ALSO PROVIDED PATIENT WITH OUTPATIENT CONTACT NUMBER FOR [facility]. PT HAS A CELLPHONE TO HELP ASSIST FOLLOW UP CARE. CM OFFERED TO CONTACT PATIENTS BROTHER ABOUT DISCHARGE BUT PT REPORTS THAT HE IS AT WORK AND PT WILL FOLLOW UP WITH HIM. PT RPEORTS NO FURTHER NEEDS FROM CM.
--- NOTE | 2020-10-06 15:42 | NUR ---
RECEIVED THE PATIENT CONSICOUS AND ORIENTED.ON ROOM AIR BREATHING SPONTANEOUSLY.NOT IN PAIN OR DISTRESS.DISCHARGE PACKET GIVE AND EXPLAINED TO THE PATIENT.DISCHARGE MEDICATIONS WERE GIVEN TO THE PATIENT AND REINFORCED THE IMPORTANCE OF TAKING HIS MEDICATIONS SCHEDULED.TRANSPORTATION VOUCHER GIVEN TO THE PATIENT.DISCHARGED PATIENT FROM THE UNIT ON STABLE CONDITION.
== END 2020-10-06 15:43 | disposition home or self-care (01) | DRG 682 ==
LOC: ER 12:58 → EROBS 14:55 → 2N 16:42
PROVIDERS: Hospitalist; Nurse Practitioner; Nurse Practitioner Family; ADMIT Internal Medicine; ATTEND Internal Medicine
DX: N17.9 Acute kidney failure, unspecified (principal); I50.23 Acute on chronic systolic (congestive) heart failure; I13.0 Hypertensive heart and chronic kidney disease with heart failure and stage 1 through stage 4 chronic kidney disease, or unspecified chronic kidney disease; I48.20 Chronic atrial fibrillation, unspecified; E44.0 Moderate protein-calorie malnutrition; Z68.1 Body mass index [BMI] 19.9 or less, adult; I69.354 Hemiplegia and hemiparesis following cerebral infarction affecting left non-dominant side; I42.9 Cardiomyopathy, unspecified; J44.1 Chronic obstructive pulmonary disease with (acute) exacerbation; I48.0 Paroxysmal atrial fibrillation; E78.5 Hyperlipidemia, unspecified; N18.9 Chronic kidney disease, unspecified; E86.0 Dehydration; F19.10 Other psychoactive substance abuse, uncomplicated; I49.5 Sick sinus syndrome; Z91.19 Patient's noncompliance with other medical treatment and regimen; Z59.0 Homelessness; Z79.82 Long term (current) use of aspirin; Z79.899 Other long term (current) drug therapy; Z82.49 Family history of ischemic heart disease and other diseases of the circulatory system; Z83.6 Family history of other diseases of the respiratory system
CPT/HCPCS: 10081

== ENCOUNTER 2020-10-19 05:04 | Inpatient (IN) | payer OTHER ==
[~2020-10-19] VITALS: Ht 177.8 cm; Wt 62.6 kg
[~2020-10-19 05:04] MED LIST changes: +CARDIZEM CD 18180 M3 PO; +NOHOMEMEDICATIONS; +PROAIR HFA8.5 GM INH
[2020-10-19 05:05] VITALS: BP 165/119
[2020-10-19 05:42] LABS: ABSOLUTE NEUTROPHILS 7.1 thou/uL (1.4-8.2); BASOPHILS 0.7 % (0.0-2.0); EOSINOPHILS 4.2 % (0.0-3.0); HEMATOCRIT 44.6 % (42.0-52.0); HEMOGLOBIN 15.1 gm/dL (14.0-18.0); LYMPHOCYTES 16.5 % (24.0-44.0); MCH 30.8 pg (26.0-34.0); MCV 90.7 fL (80.0-100.0); MONOCYTES 7.5 % (1.0-8.0); PLATELET COUNT 154 thou/uL (150-400); POLYS 71.1 % (36.0-66.0); RBC 4.92 mil/uL (4.50-6.00); RDW 16.4 % (10.5-14.5)
[2020-10-19 05:50] LABS: ANION GAP 9 mmol/L (7-16); BUN 28 mg/dL (7-18); CALCIUM 8.4 mg/dL (8.5-10.1); CHLORIDE 110 mmol/L (98-107); CO2 25 mmol/L (21-32); CREATININE 1.9 mg/dL (0.7-1.3); GLUCOSE 73 mg/dL (74-106); SODIUM 144 mmol/L (136-145)
[2020-10-19 05:51] LABS: POTASSIUM 5.4 mmol/L (3.5-5.1)
[2020-10-19 06:00] LABS: SGOT 69 U/L (15-37); SGPT 119 U/L (16-63); TOTAL BILIRUBIN 1.5 mg/dL (0.2-1.0); TOTAL PROTEIN 6.1 g/dL (6.4-8.2); TROPONIN-I <0.06 ng/mL (<0.06)
[2020-10-19 07:06] VITALS: BP 136/107
--- NOTE | 2020-10-19 07:25 | EKG ---
[address] [address] ELECTROCARDIOGRAM REPORT Name: NICK CORREA [id number] Admission: 10/19/20 Attend Phys: Discharge: Date of : 60 Report #: [id number] [facility] ED Test Date: 2020-10-19 Test Time: 05:24:46 Pat Name: NICK CORREA Department: Room: Gender: M Contracting Specialist: davide : 1960 Requested By: Leoncio Alvarez Order Number: [id number] MD: Matthew Castañeda Measurements Intervals [place] Rate: 128 P: NE: QRS: -37 QRSD: 94 T: 104 QT: 327 QTc: 477 Interpretive Statements Atrial fibrillation LVH with secondary repolarization abnormality Borderline prolonged QT interval Compared to ECG 10/01/2020 13:25:16 Left anterior fascicular block no longer present Myocardial infarct finding no longer present Electronically Signed On 10-19-2020 7:25:32 CDT by Matthew Castañeda [email or web address] <ELECTRONICALLY SIGNED> By: Matthew Castañeda MD, [facility] 10/19/20724 3 3 Matthew Castañeda MD, FACC /EPI
[2020-10-19 22:00] VITALS: BP 121/92
[2020-10-19 23:30] VITALS: BP 120/88; BP 126/88
[2020-10-20 04:02] LABS: ABSOLUTE NEUTROPHILS 6.4 thou/uL (1.4-8.2); BASOPHILS 0.9 % (0.0-2.0); EOSINOPHILS 4.5 % (0.0-3.0); HEMATOCRIT 42.4 % (42.0-52.0); HEMOGLOBIN 14.3 gm/dL (14.0-18.0); LYMPHOCYTES 19.3 % (24.0-44.0); MCH 30.4 pg (26.0-34.0); MCHC 33.7 g/dL (28.0-37.0); MCV 90.2 fL (80.0-100.0); MONOCYTES 7.1 % (1.0-8.0); PLATELET COUNT 155 thou/uL (150-400); POLYS 68.2 % (36.0-66.0); RDW 16.2 % (10.5-14.5); WBC 9.3 thou/uL (4.0-11.0)
--- NOTE | 2020-10-20 04:08 | NUR ---
Admission history and assessments completed. Care plan initiated. High fall risks, fall precautions in place. Oxygenation optimal on room air, sats upper 90's, patient feels short of air when laying flat. Vital signs stable. Rhythm Afib with occasional PVCS, rate controlled.
[2020-10-20 04:12] LABS: CALCIUM 8.1 mg/dL (8.5-10.1); CREATININE 1.8 mg/dL (0.7-1.3); POTASSIUM 3.7 mmol/L (3.5-5.1)
[2020-10-20 05:39] VITALS: BP 156/113
--- NOTE | 2020-10-20 06:41 | NUR ---
Diuresing from lasix, leg cramping, resolved after ambulating.
[2020-10-20 08:33] VITALS: BP 141/84
[2020-10-20 12:13] VITALS: BP 144/101
[2020-10-20 16:11] VITALS: BP 128/88
--- NOTE | 2020-10-20 19:47 | NUR ---
ASSESSMENT CHARTED - MEDS PER MAR - PT DIURESING WELL FROM THE IV LASIX DECREASED ODEMA IN LEGS/FEET BILAT. ERICA DIET AND FLUIDS. NO CO'S OF PAIN OR NAUSEA. WHEEZES BILAT. SOB WITH EXERTION. NO CO'S AT THE PRESENT TIME. STATES HE IS COMFORTABLE.
[2020-10-20 20:15] VITALS: BP 139/103
[2020-10-21 03:25] LABS: HEMATOCRIT 46.9 % (42.0-52.0); HEMOGLOBIN 15.9 gm/dL (14.0-18.0); MCH 30.6 pg (26.0-34.0); MCV 90.2 fL (80.0-100.0); RBC 5.2 mil/uL (4.50-6.00); RDW 16.2 % (10.5-14.5); WBC 9.9 thou/uL (4.0-11.0)
[2020-10-21 04:04] LABS: CALCIUM 8.6 mg/dL (8.5-10.1); POTASSIUM 3.6 mmol/L (3.5-5.1)
[2020-10-21 04:45] VITALS: BP 130/111
--- NOTE | 2020-10-21 07:38 | NUR ---
ASSUMED CARE OF PT AT 1900, PT IS A/O X 4. ASSESSMENT COMPLETED NOTED, PT DENIES PAIN AT THIS TIME. PT DID C/O HEADACHE 06/03 AND ANXIET, WARP HANGER CONTACTED, ORDERS RECIEVED AND INITIATED, PT TOLEREATED WELL. WILL CONTINUE WITH POC.
[2020-10-21 08:00] VITALS: BP 145/120
[2020-10-21] MEDS ORDERED: LASIX 40 MG TAB40 MG PO (13:50)
[2020-10-21 14:53] VITALS: BP 145/120
--- NOTE | 2020-10-21 14:55 | NUR ---
Case opened to follow for dc planning. Pt is a&ox4 and is known to cm from recent admissions. He lives in a camper and relies on support from his brother and local food dunn. He reports his brother is currently not available to help with transport as he was hurt at work and is not able to drive. He will need [place] cab voucher [place] [facility]. He has his meds with him from his dc last week and reports he has been taking them. He has an appt with [facility] on October 27 and they are going to help him with his SS disability and [place] medicaid applications. He plans to utlize them for his followup care. He missed his appt with the local [employer] yesterday and is concerned about finding another. He will call the [employer] line. Air Traffic Control Specialist encouraged him to apply for food stamps when he does his medicaid application as well. The pt is up ad blessing and indep with gait and adl's. Mobility limited today due to elevated heart rate. Possible dc 1-2 days. Cm to follow for med assistance and cab ride at [facility].
[2020-10-21 16:13] VITALS: BP 124/82
[2020-10-21 17:36] VITALS: BP 145/120
--- NOTE | 2020-10-21 17:58 | NUR ---
ASSESSMENT CHARTED - MEDS PER [facility] - ERICA DIET AND FLUIDS. UP IN ROOM AMBULATING IN THE HALLWAY STEADY ON FEET. NO CO'S OF PAIN OR NAUSEA. WHILE PT AMBULATING IN MODI HR UP TO THE 150'S AND PT SHORT OF BREATH. INSTURCTED TO RELAX AND CATCH HIS BREATH - HR DROPPED BACK DOWN ONCE PT RELAXED. DR CARDOSO'S EVENTS ASSISTANT NOTIFIED AND HE STATED IT WAS OKSY TO SEND PT HOME AND OFFICE VISIT FOR DR SANTOS MADE PRIOR TO D/C. HOME THIS EVENING AFTER DINNER PT WANTED TO STAY FOR DINNER DUE TO HAVING MISSED PANTRY DAY YESTERDAY AND HE WOULD HAVE NO FOOD - SWS INTO SEE PATIENT AND REFERALS GIVEN TO HELP FOR FOOD. PT STATED UNDERSTANDING OF INSTRUCTION GIVEN - ACCOMAPNAIED PT TO THE ER WAITING AREA AND CAB VOUCHER WAS PROVIDED FOR PATIENT TO GET HOME. NO CO'S AT TIME OF D/C.
== END 2020-10-21 17:55 | disposition home or self-care (01) | DRG 291 ==
LOC: ER 05:04 → EROBS 08:15 → 2N 22:40
PROVIDERS: Emergency Medicine; Nurse Practitioner; ADMIT Hospitalist; ATTEND Hospitalist
DX: I13.0 Hypertensive heart and chronic kidney disease with heart failure and stage 1 through stage 4 chronic kidney disease, or unspecified chronic kidney disease (principal); I50.23 Acute on chronic systolic (congestive) heart failure; I48.20 Chronic atrial fibrillation, unspecified; N17.9 Acute kidney failure, unspecified; E46 Unspecified protein-calorie malnutrition; Z68.1 Body mass index [BMI] 19.9 or less, adult; I42.8 Other cardiomyopathies; I48.0 Paroxysmal atrial fibrillation; I27.20 Pulmonary hypertension, unspecified; N18.9 Chronic kidney disease, unspecified; Z20.822 Contact with and (suspected) exposure to COVID-19; E87.5 Hyperkalemia; E86.0 Dehydration; Z91.19 Patient's noncompliance with other medical treatment and regimen; Z59.0 Homelessness; Z79.82 Long term (current) use of aspirin; Z86.73 Personal history of transient ischemic attack (TIA), and cerebral infarction without residual deficits; Z79.899 Other long term (current) drug therapy
CPT/HCPCS: 10081

== ENCOUNTER 2021-04-01 05:26 | Inpatient (IN) | payer OTHER ==
[~2021-04-01] VITALS: Ht 177.8 cm; Wt 68.0 kg
--- NOTE | ~2021-04-01 | EMS ---
[place] [address] EMS Patient Care Report Name: NICK CORREA Room #: 200-I DIS IN M.R.#: [id number] Admission: 04/01/21 Attend Phys: Lizandro Fulton MD Discharge: 04/06/21 Date of : 60 Report #: [id number] THIS REPORT FOR: //name// Report Transmitted: 04/07/2021 08:32 EMS Care Summary [place], [place]/[facility] Incident [id number] @ 04/01/2021 04:57 Incident Location [address] [place] [id number] Patient NICK CORREA Male, 60 Years 1960 Patient Address [address] [place] [address] Patient History Atrial Fibrillation, Chief Complaint SHORT OF BREATH Disposition Transported No Lights/[place] Dispatch Reason Breathing Problem Transported To [facility] Narrative ARRIVED TO FIND PT STANDING AT FRONT DOOR OF HOUSE. PT REPORTS SHORTNESS OF BREATH ALL NIGHT. PT ABLE TO WALK TO AMBULANCE, CLIMB ABOARD, SIT ON COT, SECURED WITH STRAPS X2. ALS ASSESSMENT VITALS OBTAINED. PT FOUND TO BE IN A-FIB RVR. ENROUTE, PT CONDITION UNCHANGED. ARRIVED. PT TAKEN INSIDE ON COT TO ER 9. PT MOVED TO BED. [place] [address] EMS Patient Care Report Name: NICK CORREA Room #: 200-I [facility] IN [facility].#: [id number] Admission: 04/01/21 Attend Phys: Lizandro Fulton MD Discharge: 04/06/21 Date of : 60 Report #: [id number] REPORT GIVEN TO NURSE, PT CARE TRANSFERRED. Initial Vitals @05:12P: 132,SpO2: 58, @05:14P: 152,R: 24,BP: 181/143,Pain: 0/10,GCS: 15,SpO2: 86,Revised Trauma: 12, @05:19P: 159,R: 24,BP: 177/116,Pain: 0/10,GCS: 15,CO: 0,SpO2: 98,Revised Trauma: 12, Assessments @05:06MENTAL:Person Oriented,Event Oriented,Place Oriented,Time Oriented,SKIN:HEENT:Head/Face: No Abnormalities,Eyes: No Abnormalities,Neck/Airway: No Abnormalities,LUNG SOUNDS:General: No Abnormalities,ABDOMEN:General: No Abnormalities,PELVIS//GI:No Abnormalities,EXTREMITIES:Left Arm: No Abnormalities,Right Arm: No Abnormalities,Left Leg: No Abnormalities,Right Leg: No Abnormalities,PULSE:Radial: 2+ Normal,NEURO:No Abnormalities, Impression Shortness of breath Procedures @05:18 IV Therapy - Saline Lock 10cc (20 ga) Site: Antecubital-Left Response: UnchangedSucceeded @05:06 ALS Assessment Response: UnchangedSucceeded @05:14 Oxygen FlowRate: 4 Device: Nasal Cannula (NC) Response: ImprovedSucceeded Timeline 04:56,Call Received 04:56,Dispatch Notified 04:57,Dispatched 04:59,En Route 05:05,On Scene 05:06,At Patient 05:06,ALS Assessment,Response: UnchangedSucceeded, 05:12,Depart Scene 05:12,BP: / M,PULSE: 132,RR: R,SPO2: 58 Ox,ETCO2: ,BG: ,PAIN: ,GCS: , 05:14,Oxygen FlowRate: 4 Device: Nasal Cannula (NC) Response: ImprovedSucceeded, 05:14,BP: 181/143 M,PULSE: 152,RR: 24 R,SPO2: 86 Ox,ETCO2: ,BG: ,PAIN: 0,GCS: 15, 05:18,IV Therapy - Saline Lock 10cc 20 ga Site: Antecubital-Left,Response: UnchangedSucceeded, 05:19,BP: 177/116 M,PULSE: 159,RR: 24 R,SPO2: 98 Ox,ETCO2: ,BG: ,PAIN: 0,GCS: 15, 05:20,At Destination [address] [place] [address] EMS Patient Care Report Name: NICK CORREA Room #: 200-I [facility] IN M.R.#: [id number] Admission: 04/01/21 Attend Phys: Lizandro Fulton MD Discharge: 04/06/21 Date of : 60 Report #: [id number] 05:35,Call Closed Disclaimer v1.1 Copyright 2021 [employer] This EMS Care Summary contains data elements from the applicable legal record (which may be displayed differently). It is designed to provide pertinent information for the following purposes: continuity of care, clinical quality, and state data reporting. The complete legal record is available to ED staff and administrators of the receiving hospital in [employer]'s Patient Tracker. All data is provided "as is."
[~2021-04-01 05:26] MED LIST changes: +LASIX 40 MG TAB40 MG PO
[2021-04-01 05:27] VITALS: BP 180/133
[2021-04-01 05:53] LABS: ABSOLUTE NEUTROPHILS 7.2 thou/uL (1.4-8.2); BASOPHILS 0.9 % (0.0-2.0); EOSINOPHILS 1.9 % (0.0-3.0); HEMATOCRIT 49.6 % (42.0-52.0); HEMOGLOBIN 16.8 gm/dL (14.0-18.0); LYMPHOCYTES 19.4 % (24.0-44.0); MCH 31.2 pg (26.0-34.0); MCHC 33.9 g/dL (28.0-37.0); MCV 92.2 fL (80.0-100.0); MONOCYTES 10.3 % (1.0-8.0); PLATELET COUNT 211 thou/uL (150-400); POLYS 67.5 % (36.0-66.0); RBC 5.38 mil/uL (4.50-6.00); RDW 15.2 % (10.5-14.5); WBC 10.6 thou/uL (4.0-11.0)
[2021-04-01 06:05] LABS: CALCIUM 8.9 mg/dL (8.5-10.1); CREATININE 2.7 mg/dL (0.7-1.3); POTASSIUM 3.8 mmol/L (3.5-5.1)
[2021-04-01 06:14] LABS: ALBUMIN 3.9 g/dL (3.4-5.0); TOTAL BILIRUBIN 2.6 mg/dL (0.2-1.0); TOTAL PROTEIN 7.2 g/dL (6.4-8.2)
[2021-04-01 06:24] LABS: APTT 24.5 Seconds (24.5-32.8); INR 1.14; PROTIME 12.4 Seconds (10.5-12.1)
--- NOTE | 2021-04-01 07:52 | EKG ---
[place] [address] [facility] [place] [address] ELECTROCARDIOGRAM REPORT Name: NICK CORREA [id number] Admission: 04/01/21 Attend Phys: Discharge: Date of : 60 Report #: [id number] [facility] ED Test Date: 2021-04-01 Test Time: 05:38:50 Pat Name: NICK CORREA Department: Room: Gender: M Fish Worm Grower: MARY MONTERROSO : 1960 Requested By: Iona Evans Order Number: [id number] MD: Matthew Castañeda Measurements Intervals [place] Rate: 155 P: MO: QRS: -49 QRSD: 91 T: 87 QT: 299 QTc: 481 Interpretive Statements Atrial fibrillation Ventricular premature complex Left anterior fascicular block Anterior infarct, old Repolarization abnormality, prob rate related Baseline wander in lead(s) V3 Compared to ECG 10/19/2020 05:24:46 Ventricular premature complex(es) now present Left anterior fascicular block now present Myocardial infarct finding now present Left ventricular hypertrophy no longer present Electronically Signed On 04-01-2021 7:52:12 SENIOR SUPPLIER QUALITY ENGINEER by Matthew Castañeda [email or web address] <ELECTRONICALLY SIGNED> By: Matthew Castañeda MD, FAC 04/01/21 0752 0538 0538 Matthew Castañeda MD, LOCATED [facility]IN [facility] /EPI
[2021-04-01 07:56] VITALS: BP 123/88
[2021-04-01 09:26] VITALS: BP 123/88
[2021-04-01 10:00] LABS: AMP/METHAMP Negative (Negative); BARBITURATES Negative (Negative); BENZODIAZEPINES Negative (Negative); COCAINE POSITIVE (Negative); METHADONE Negative (Negative); OPIATES Negative (Negative); PCP Negative (Negative)
[2021-04-01 12:01] VITALS: BP 131/99
--- NOTE | 2021-04-01 15:57 | NUR ---
Pt known to cm from previous admission six months ago. Pt lives in a camper on his brother's property. He has been instructed and is familiar with [facility] for f/u medical care and medication assistance. He will need scripts vouched at [place] along with a cab ride. He is being seen by cardiology and GI. [facility] has seen him today and given him the number for SS disability application along with assisting him with re[place] for [place]. The pt relies on his bro along with food pantries for support. Pt encouraged to apply for food stamps as well. Will follow.
[2021-04-01 16:01] VITALS: BP 131/99
[2021-04-01 17:45] LABS: % SATURATION 24 % (20-39); IRON 77 ug/dL (65-175); TIBC 324 ug/dL (250-450)
[2021-04-01 19:56] LABS: DIRECT BILIRUBIN 0.5 mg/dL (<0.1-0.2); TOTAL BILIRUBIN 1.5 mg/dL (0.2-1.0)
[2021-04-02] VITALS (7 sets, daily range): BP systolic 127–140; BP diastolic 97–109
[2021-04-02 02:29] LABS: CALCIUM 9.1 mg/dL (8.5-10.1); CREATININE 2.7 mg/dL (0.7-1.3); POTASSIUM 4.2 mmol/L (3.5-5.1)
[2021-04-02 02:31] LABS: ABSOLUTE NEUTROPHILS 10.3 thou/uL (1.4-8.2); HEMATOCRIT 44.9 % (42.0-52.0); LYMPHOCYTES 2.6 % (24.0-44.0); MCH 30.7 pg (26.0-34.0); MCHC 32.9 g/dL (28.0-37.0); MCV 93.3 fL (80.0-100.0); PLATELET COUNT 189 thou/uL (150-400); POLYS 95.4 % (36.0-66.0); RBC 4.82 mil/uL (4.50-6.00); RDW 14.8 % (10.5-14.5); WBC 10.8 thou/uL (4.0-11.0)
[2021-04-02 02:37] LABS: ALBUMIN 3.2 g/dL (3.4-5.0); DIRECT BILIRUBIN 0.4 mg/dL (<0.1-0.2); TOTAL BILIRUBIN 1.4 mg/dL (0.2-1.0)
--- NOTE | 2021-04-02 02:56 | NUR ---
Paged Dr. Castañeda at this time. Updated on uncontrolled rate and BP. See orders for medication
[2021-04-02 03:00] LABS: HEMOGLOBIN 14.8 gm/dL (14.0-18.0)
[2021-04-03 00:04] VITALS: BP 131/96
--- NOTE | 2021-04-03 03:27 | NUR ---
RECEIVED CAREOF THIS PATIENT AT 1900. PATIENT ALERT AND ORIENTED X4. UP AD BRADLEY. C/O ONLY MILD PRESSURE PAIN IN ABD. IS AFIB ON TELE. ACCUCHECK WAS 192, GETS NO COVERAGE FOR THIS. SLEPT VERY LITTLE THIS SHIFT.
[2021-04-03 04:49] VITALS: BP 132/106
[2021-04-03 07:18] VITALS: BP 150/107
[2021-04-03 11:33] VITALS: BP 137/88
[2021-04-03 15:12] VITALS: BP 143/86
--- NOTE | 2021-04-03 17:59 | NUR ---
PATIENT RESTING COMFORTABLY IN BED WITH CALL LIGHT WITHIN REACH. DENIES ANY CP OR SOA. A&O X 4. VSS STABLE. ASSESSMENTS CHARTED. AFIB ON THE MONITOR, CONTROLLED. DENIES N/V. PATIENT ADLIB TO THE BATHROOM AND STEADY ON HIS FEET. PROGRESSING TOWARDS GOALS. CONTINUE WITH PLAN OF CARE.
[2021-04-03 19:30] VITALS: BP 121/94
[2021-04-04 03:29] VITALS: BP 144/93
--- NOTE | 2021-04-04 03:57 | NUR ---
Pt. rested quietly at intervals during the night when checked on during frequent rounds. He c/o some abdominal pain related to his hernias. Pt. refused any po pain medication interventions. He asks for frequent snacks. No other complaints offered.
[2021-04-04 07:57] VITALS: BP 144/99
[2021-04-04 11:47] VITALS: BP 139/101
[2021-04-04 15:09] VITALS: BP 136/103
[2021-04-04 15:13] LABS: HEMATOCRIT 46.8 % (42.0-52.0); HEMOGLOBIN 15.5 gm/dL (14.0-18.0); MCH 30.4 pg (26.0-34.0); MCHC 33.1 g/dL (28.0-37.0); RBC 5.08 mil/uL (4.50-6.00); RDW 14.6 % (10.5-14.5)
[2021-04-04 15:28] LABS: ALBUMIN 3.1 g/dL (3.4-5.0); CALCIUM 7.9 mg/dL (8.5-10.1); CREATININE 2.3 mg/dL (0.7-1.3); MAGNESIUM 1.8 mg/dL (1.8-2.4); TOTAL BILIRUBIN 1.4 mg/dL (0.2-1.0)
[2021-04-04 15:32] LABS: POTASSIUM 2.6 mmol/L (3.5-5.1)
[2021-04-04 19:08] LABS: URINE BILIRUBIN NEGATIVE (Negative); URINE BLOOD NEGATIVE (Negative); URINE CLARITY CLEAR; URINE COLOR YELLOW; URINE GLUCOSE-RANDOM* NEGATIVE (Negative); URINE KETONES NEGATIVE (Negative); URINE LEUKOCYTES-REFLEX NEGATIVE (Negative); URINE NITRITE-REFLEX NEGATIVE (Negative); URINE PROTEIN (DIPSTICK) NEGATIVE (Negative); URINE UROBILINOGEN 0.2 E.U./dl (0.2-1.0)
[2021-04-04 19:25] VITALS: BP 125/95
--- NOTE | 2021-04-04 19:56 | NUR ---
ASSUMED CARE OF PATIENT AT 0700. PATIENT DENIES ANY CP OR SOA. UP AD BRADLEY IN THE ROOM WITHOUT ANY DIFFICULTY. COMPLIANT WITH ALL MEDICATIONS ORDERED. CONTROLLED AFIB ON MONITOR. BM X 2 WITH BRIGHT RED BLOOD ON TISSUE WHEN WIPING, NO BLOOD TINGED WATER IN TOILET OR BLOOD IN STOOL. UA COLLECTED AND SENT TO LAB. POTASSIUM AND CALCIUM REPLACED. IN BED WITH CALL LIGHT WITHIN REACH. CONTINUE WITH PLAN OF CARE.
[2021-04-05 04:00] LABS: ABSOLUTE NEUTROPHILS 14.7 thou/uL (1.4-8.2); BASOPHILS 0.1 % (0.0-2.0); HEMATOCRIT 49.4 % (42.0-52.0); HEMOGLOBIN 16.4 gm/dL (14.0-18.0); LYMPHOCYTES 1.8 % (24.0-44.0); MCH 30.6 pg (26.0-34.0); MCHC 33.3 g/dL (28.0-37.0); MCV 91.8 fL (80.0-100.0); MONOCYTES 8.3 % (1.0-8.0); PLATELET COUNT 186 thou/uL (150-400); POLYS 89.8 % (36.0-66.0); RBC 5.38 mil/uL (4.50-6.00); WBC 16.4 thou/uL (4.0-11.0)
[2021-04-05 04:04] LABS: ALBUMIN 3.1 g/dL (3.4-5.0); CALCIUM 7.9 mg/dL (8.5-10.1); CREATININE 2.3 mg/dL (0.7-1.3); MAGNESIUM 1.8 mg/dL (1.8-2.4); TOTAL BILIRUBIN 1.2 mg/dL (0.2-1.0); TOTAL PROTEIN 5.9 g/dL (6.4-8.2)
[2021-04-05 04:07] LABS: POTASSIUM 2.4 mmol/L (3.5-5.1)
[2021-04-05 04:44] VITALS: BP 143/93
[2021-04-05 07:00] VITALS: BP 138/106
--- NOTE | 2021-04-05 09:10 | NUR ---
received orders for iv k+ replacement unable to finish after iv infiltrated, vss, no c/o pain besides iv, up adlib in room, report given to next shift to con't ppoc
--- NOTE | 2021-04-05 09:41 | 2DMMODE ---
[facility] [place] [address] 2 D/M-MODE ECHOCARDIOGRAM Name: NICK CORREA Room #: 200-I ADM IN ..#: [id number] Admission: 04/01/21 Attend Phys: Lizandro Fulton MD Discharge: Date of : 60 Report #: [id number] THIS REPORT FOR: cc: [facility] - No family physician/PCP [facility] - No family physician/PCP Misha Izaguirre MD ~ APPROVED REPORT Study performed: 04/05/2021 08:51:38 EXAM: Comprehensive 2D, Doppler, and color-flow Echocardiogram Patient Location: Bedside Status: routine BSA: 1.80 HR: 140 bpm BP: 138/106 mmHg Rhythm: Atrial Fibrillation Other Information Study Quality: Fair Technically limited study due to restless, moving patient. Not all measurements taken. Indications CHF, Afib, cardiomyopathy. 2D Dimensions IVSd: 9.68 (7-11mm) LVOT Diam: 21.48 (18-24mm) LVDd: 55.91 mm PWd: 10.12 (7-11mm) LVDs: 49.18 (25-40mm) Left Atrium: 45.98 (27-40mm) Aortic Root: 33.42 mm Aortic Valve AoV Peak Lewis.: 1.63 m/s AO Peak Gr.: 10.63 mmHg Tricuspid Valve TR Peak Lewis.: 2.50 m/s TR Peak Gr.: 25.07 mmHg Left Ventricle [facility] [address] [place] [address] 2 D/M-MODE ECHOCARDIOGRAM Name: NICK CORREA Room #: 200-I ADM IN .R.#: [id number] Admission: 04/01/21 Attend Phys: Lizandro Fulton MD Discharge: Date of : 60 Report #: [id number] The left ventricle is normal size. There is normal left ventricular wall thickness. Left ventricular systolic function is severely decreased. LVEF is 25-30%. This study is not technically sufficient to allow evaluation of the LV diastolic function due to atrial fibrillation. Right Ventricle The right ventricle is normal size. Right ventricle is mildly hypokinetic. Atria Left atrium is dilated. Right atrium is dilated. Aortic Valve The aortic valve is normal in structure. No aortic regurgitation is present. There is no aortic valvular stenosis. Mitral Valve Mitral valve leaflets are calcified. Mild mitral annular calcification. Mild mitral regurgitation. Tricuspid Valve The tricuspid valve is normal in structure. Mild tricuspid regurgitation. Estimated PAP is 25mmHg plus the right atrial pressure. Pulmonic Valve Pulmonic valve is not well visualized. Great Vessels The aortic root is normal in size. Ascending aorta is not well visualized. IVC is not visualized. Pericardium Trivial pericardial effusion. <Conclusion> The left ventricle is normal size. Left ventricular systolic function is severely decreased. The right ventricle is normal size. Left atrium is dilated. The aortic valve is normal in structure. Mild mitral regurgitation. [facility] [address] [place] [address] 2 D/M-MODE ECHOCARDIOGRAM Name: NICK CORREA Room #: 200-I ADM IN .R.#: [id number] Admission: 04/01/21 Attend Phys: Lizandro Fulton MD Discharge: Date of : 60 Report #: [id number] Mild tricuspid regurgitation. Estimated PAP is 25mmHg plus the right atrial pressure. <ELECTRONICALLY SIGNED> By: Misha Izaguirre MD 04/05/21940 0 0 Misha Izaguirre MD /INF
[2021-04-05 11:00] VITALS: BP 128/97
[2021-04-05 15:00] VITALS: BP 137/93
--- NOTE | 2021-04-05 15:18 | NUR ---
CONTINUE TO FOLLOW FOR DISCHARGE NEEDS. PER IRENE NOTES PT WITH NO NEEDS AT TIME OF DC AND DC HOME. CM GIVE PRINTED RESOURCES OF HOMELESS SHELTERS IN AREA. CM WITH VOUCH FOR MEDS WHEN DC APPROPRIATE AND ASSIST WITH TRANSPORTATION ONCE MEDICALLY STABLE TO DC. CM FOLLOWING.
[2021-04-05 19:50] VITALS: BP 139/89
--- NOTE | 2021-04-06 03:00 | NUR ---
Assumed pt care at 1900. Pt is alert and oriented. No sign of distress noted in pt. Denies pain. Vital signs stable. Assessment completed and documented. Scheduled meds administered to pt. No acute event during the night. Patient continued to state that he could not sleep during the night. Melatonin administered to pt. No further needs at this time. Continue to monitor.
[2021-04-06 03:53] VITALS: BP 126/104
[2021-04-06 07:00] VITALS: BP 122/100
[2021-04-06 09:05] LABS: HEMATOCRIT 49.3 % (42.0-52.0); HEMOGLOBIN 16.1 gm/dL (14.0-18.0); MCH 30.4 pg (26.0-34.0); MCHC 32.6 g/dL (28.0-37.0); MCV 93.2 fL (80.0-100.0); RBC 5.29 mil/uL (4.50-6.00); RDW 15.1 % (10.5-14.5); WBC 10.6 thou/uL (4.0-11.0)
[2021-04-06 09:27] LABS: CALCIUM 8.1 mg/dL (8.5-10.1); CREATININE 2.4 mg/dL (0.7-1.3); POTASSIUM 3.7 mmol/L (3.5-5.1)
[2021-04-06 11:00] VITALS: BP 117/84
[2021-04-06] MEDS ORDERED: ATENOLOL 50MG T50 MG PO ×2 (13:07→14:01)
[2021-04-06] MEDS ORDERED: CARDIZEM CD120 MG PO ×3 (13:07→14:01)
[2021-04-06] MEDS ORDERED: ADULT LOW DOSE81 MG PO ×2 (13:07→14:01)
[2021-04-06] MEDS ORDERED: COZAAR 25 MG TA25 M1 PO ×2 (13:07→14:01)
[2021-04-06 15:32] VITALS: BP 131/99
--- NOTE | 2021-04-06 15:49 | NUR ---
CM VOUCHED FOR DC MEDS. COST $39.10. CM PICKED MEDS UP AND DELIVERED TO PT. ALSO RETRIEVED ADDRESS FOR CAB RIDE HOME. RN AWARE. NO FURTHER CM NEEDS AT THIS TIME.
--- NOTE | 2021-04-06 15:56 | NUR ---
Pt discharged at 1600. Pt was A&0x4, VS stable and afebrile throughout shift. Pt was given discharge education and communicated understanding of information provided. Pt was provided with vouchers for transportation and medications. No complaints of pain. No current concerns.
== END 2021-04-06 16:42 | disposition home or self-care (01) | DRG 291 ==
LOC: ER 05:26 → EROBS 09:21 → 2N 04-02 17:50
PROVIDERS: Emergency Medicine; Nurse Practitioner; ADMIT Internal Medicine; ATTEND Internal Medicine
DX: I13.0 Hypertensive heart and chronic kidney disease with heart failure and stage 1 through stage 4 chronic kidney disease, or unspecified chronic kidney disease (principal); J96.01 Acute respiratory failure with hypoxia; I50.23 Acute on chronic systolic (congestive) heart failure; G93.41 Metabolic encephalopathy; N17.9 Acute kidney failure, unspecified; J44.1 Chronic obstructive pulmonary disease with (acute) exacerbation; I42.8 Other cardiomyopathies; I48.0 Paroxysmal atrial fibrillation; E78.5 Hyperlipidemia, unspecified; F17.210 Nicotine dependence, cigarettes, uncomplicated; N18.9 Chronic kidney disease, unspecified; E86.0 Dehydration; F10.10 Alcohol abuse, uncomplicated; F19.10 Other psychoactive substance abuse, uncomplicated; R74.01 Elevation of levels of liver transaminase levels; I16.0 Hypertensive urgency; I27.20 Pulmonary hypertension, unspecified; E87.6 Hypokalemia; Z86.73 Personal history of transient ischemic attack (TIA), and cerebral infarction without residual deficits; Z91.14 Patient's other noncompliance with medication regimen; Z59.00 Homelessness unspecified; Z28.21 Immunization not carried out because of patient refusal
CPT/HCPCS: 10081

== ENCOUNTER 2021-04-13 04:35 | Emergency (ER) | payer OTHER ==
[~2021-04-13] VITALS: Ht 177.8 cm; Wt 68.0 kg
--- NOTE | ~2021-04-13 | EMS ---
[place] [address] EMS Patient Care Report Name: NICK CORREA Room #: REG GABBI Mary#: [id number] Admission: 04/13/21 Attend Phys: Discharge: Date of : 60 Report #: [id number] THIS REPORT FOR: //name// Report Transmitted: 04/13/2021 04:51 EMS Care Summary [place], [place]/[facility] Incident [id number] @ 04/13/2021 04:03 Incident Location [address] [place] [id number] Patient NICK MICHELE Male, 60 Years 1960 Patient Address [address] [place] [id number] Patient History Congestive Heart Failure (CHF),Hypertension (HTN),Atrial Fibrillation, Patient Allergies No known allergies, Patient Medications Other, Chief Complaint SOB w/exertion & sleep, dizziness Disposition Transported No Lights/[place] Dispatch Reason Breathing Problem Transported To [facility] Narrative Called to the scene for SOB. Upon arrival, pt met us at the door, walked out and climbed into the ambulance and sat down w/o incident. He c/o feeling SOB, dizzy and can't sleep. He said he was just released from [facility] a few days ago. He denies fever, vomiting & diarrhea,, has CBBS and denies any [place] [address] EMS Patient Care Report Name: NICK CORREA Room #: REG [facility]..#: [id number] Admission: 04/13/21 Attend Phys: Discharge: Date of : 60 Report #: [id number] Vitals and 12 lead obtained. He requests transport to the ER for further eval & tx. Vitals repeated. En route: no significant changes. RR to the ER. Arrived: pt taken to ER #9 and moved to their bed w/o incident. Pt care & report to ER staff. Initial Vitals @04:18P: 99,R: 24,BP: 144/92,Pain: 0/10,GCS: 15,SpO2: 99,Revised Trauma: 12, @04:19P: 95,R: 24,BP: 151/91,Pain: 0/10,GCS: 15,SpO2: 98,Revised Trauma: 12,AR Suspected: false Assessments @04:12MENTAL:Person Oriented,Time Oriented,Place Oriented,Event Oriented,SKIN:HEENT:LUNG SOUNDS:ABDOMEN:PELVIS//GI:EXTREMITIES:Left Arm: No Abnormalities,Right Arm: No Abnormalities,Left Leg: No Abnormalities,Right Leg: No Abnormalities,PULSE:Radial: 2+ Normal,NEURO:No Abnormalities, Impression Acute Respiratory Distress (Dyspnea) Procedures @04:19 12-Lead ECG Response: UnchangedSucceeded @04:41 3-Lead ECG Response: UnchangedSucceeded Timeline 04:02,Call Received 04:02,Dispatch Notified 04:03,Dispatched 04:05,En Route 04:11,On Scene 04:12,At Patient 04:18,BP: 144/92 M,PULSE: 99,RR: 24 R,SPO2: 99 Ox,ETCO2: ,BG: ,PAIN: 0,GCS: 15, 04:19,12-Lead ECG,Response: UnchangedSucceeded, 04:19,BP: 151/91 M,PULSE: 95,RR: 24 R,SPO2: 98 Ox,ETCO2: ,BG: ,PAIN: 0,GCS: 15, 04:23,Depart Scene 04:31,At Destination 04:41,3-Lead ECG,Response: UnchangedSucceeded, 04:46,Call Closed Disclaimer v1.1 Copyright 2021 [employer] This EMS Care Summary contains data elements from the applicable legal record (which may be displayed differently). It is designed to provide pertinent information for the following purposes: continuity of care, clinical quality, and state data reporting. The complete legal record is available to ED staff and administrators of the receiving hospital in [employer]'s Patient Tracker. All data [address] [address] EMS Patient Care Report Name: SIMONJANICK Room #: REG GABBI Mary#: [id number] Admission: 04/13/21 Attend Phys: Discharge: Date of : 60 Report #: [id number] is provided "as is."
[~2021-04-13 04:35] MED LIST changes: +ADULT LOW DOSE81 MG PO; +ATENOLOL 50MG T50 MG PO; +COZAAR 25 MG TA25 M1 PO
[2021-04-13 05:52] LABS: ABSOLUTE NEUTROPHILS 8.9 thou/uL (1.4-8.2); BASOPHILS 0.4 % (0.0-2.0); EOSINOPHILS 1.7 % (0.0-3.0); HEMATOCRIT 45.4 % (42.0-52.0); HEMOGLOBIN 14.4 gm/dL (14.0-18.0); LYMPHOCYTES 11.5 % (24.0-44.0); MCH 30.1 pg (26.0-34.0); MCHC 31.7 g/dL (28.0-37.0); MCV 95.1 fL (80.0-100.0); MONOCYTES 6.5 % (1.0-8.0); PLATELET COUNT 167 thou/uL (150-400); POLYS 79.9 % (36.0-66.0); RBC 4.77 mil/uL (4.50-6.00); RDW 15.7 % (10.5-14.5); WBC 11.1 thou/uL (4.0-11.0)
[2021-04-13 06:03] LABS: CALCIUM 8.3 mg/dL (8.5-10.1); CREATININE 1.8 mg/dL (0.7-1.3); POTASSIUM 4.6 mmol/L (3.5-5.1)
[2021-04-13 06:09] LABS: APTT 23.9 Seconds (24.5-32.8); INR 1.02; PROTIME 11.1 Seconds (10.5-12.1)
[2021-04-13 06:21] LABS: ALBUMIN 2.9 g/dL (3.4-5.0); TOTAL BILIRUBIN 1.1 mg/dL (0.2-1.0); TOTAL PROTEIN 5.6 g/dL (6.4-8.2)
[2021-04-13 07:02] VITALS: BP 139/108
--- NOTE | 2021-04-13 07:48 | EKG ---
[place] [address] [facility] [employer] [place] [address] ELECTROCARDIOGRAM REPORT Name: NICK CORREA [id number] Admission: 04/13/21 Attend Phys: Discharge: 04/13/21 Date of : 60 Report #: [id number] [facility] ED Test Date: 2021-04-13 Test Time: 05:32:29 Pat Name: NICK CORREA Department: Room: Gender: M Family Practice Medical Doctor: : 1960 Requested By: Guanakito Mendez Order Number: [id number] MD: Matthew Castañeda Measurements Intervals [place] Rate: 102 P: MN: QRS: -34 QRSD: 95 T: 153 QT: 375 QTc: 489 Interpretive Statements Atrial fibrillation Ventricular premature complex LVH with secondary repolarization abnormality Anterior infarct, old Compared to ECG 04/01/2021 05:38:50 Left ventricular hypertrophy now present Left anterior fascicular block no longer present Myocardial infarct finding still present Electronically Signed On 04-13-2021 7:47:41 TRACK OILER by Matthew Castañeda [email or web address] <ELECTRONICALLY SIGNED> By: Matthew Castañeda MD, [facility] 04/13/21 0747 0532 0532 Matthew Castañeda MD, [facility] /EPI
== END 2021-04-13 07:03 | disposition home or self-care (01) ==
LOC: ER 04:35
PROVIDERS: Emergency Medicine
DX: I48.91 Unspecified atrial fibrillation (principal); Z20.822 Contact with and (suspected) exposure to COVID-19; R06.00 Dyspnea, unspecified; I11.0 Hypertensive heart disease with heart failure; I50.9 Heart failure, unspecified